=== PATIENT | female | born 1945 | race Caucasian/White ===

== ENCOUNTER → 2018-02-15 11:52 | Outpatient (CLI) | payer MEDICARE, OTHER, SELFPAY ==
--- NOTE | 2018-02-15 | DI.US.S_ITS ---
PROCEDURE: US ABDOMEN COMPLETE INDICATIONS: SEVERE ABDOMINAL PAIN TECHNIQUE: Real-time scanning was performed of the abdominal and retroperitoneal organs, with image documentation. COMPARISON: [facility], US, ABDOMEN COMPLETE, 10/03/2014, 9:32. FINDINGS: Liver: The liver demonstrates normal size. The liver demonstrates generalized increased echogenicity. This decreases ultrasound sensitivity for detection of hepatic masses. Gallbladder: Removed. Biliary ducts: Intrahepatic bile ducts are non-dilated. Extrahepatic bile duct caliber measures 7 mm. Normal is 6-7 mm or less in diameter, or 10 mm or less post-cholecystectomy. Pancreas: Not seen, obscured by overlying bowel gas. Spleen: Spleen is normal in size and homogeneous in echotexture. Kidneys: Kidneys are normal in size and echotexture. Right kidney measures 11.4 cm long; left kidney measures 11.1 cm long. No hydronephrosis or nephrolithiasis. No solid masses. Aorta: Visualized aorta is normal in caliber at less than 3 cm. Iliacs: Proximal common iliac arteries are normal in caliber at less than 2.5 cm. IVC: Intrahepatic inferior vena cava is patent. Miscellaneous: No free abdominal fluid. IMPRESSION: Status post cholecystectomy, without biliary dilatation. The liver demonstrates increased echogenicity. This finding is nonspecific, yet it is most commonly attributed to fatty infiltration. Nonvisualization of the pancreas secondary to bowel gas. Dictated by: Sheng Andrews M.D. on 02/15/2018 at 14:24 Approved by: Sheng Andrews M.D. on 02/15/2018 at 14:26
--- NOTE | 2018-02-15 | DI.RAD.S_ITS ---
PROCEDURE: XR ABDOMEN 1V INDICATIONS: ABDOMINAL PAIN TECHNIQUE: One view of the abdomen acquired. COMPARISON: [facility], CT, ABDOMEN WITH CONTRAST, 09/18/2008, 12:09. FINDINGS: Surgical changes and devices: None. Bowel: Bowel gas pattern is normal. A moderate amount of stool seen within the colon. Soft tissues: No suspicious abdominal calcifications. Visualized solid organ contours appear normal in size. Bones: No suspicious bony lesions. Age-appropriate bony degenerative changes are seen. IMPRESSION: There is a moderate amount of stool seen within the colon. Please correlate with an underlying history of constipation. Dictated by: Sheng Andrews M.D. on 02/15/2018 at 11:18 Approved by: Sheng Andrews M.D. on 02/15/2018 at 11:19
== END ==
PROVIDERS: Family Provider Family Medicine; PCP Family Medicine; Visit Provider Family Medicine
DX: R10.9 Unspecified abdominal pain (principal); Z90.49 Acquired absence of other specified parts of digestive tract
CPT/HCPCS: 74018; 76700

== ENCOUNTER → 2018-08-16 13:30 | Outpatient (CLI) | payer MEDICARE, OTHER, SELFPAY ==
--- NOTE | 2018-08-16 13:31 | DI.MG.S_ITS ---
UNILATERAL RIGHT DIGITAL DIAGNOSTIC MAMMOGRAM 3D/2D POST MASTECTOMY: 08/16/2018 CLINICAL: Right breast lump. Personal history of left breast cancer. Post left mastectomy. Comparison is made to exams dated: 06/17/2010 mammogram, 07/10/2009, and 07/01/2009 [facility]. The tissue of right breast is predominantly fatty. There are grouped dystrophic rim calcifications in the right breast at 12 o'clock middle depth. These correspond with the palpable abnormality. There are also diffuse benign round calcifications and post operative changes in the right breast. No other significant masses or calcifications are seen in the breast. IMPRESSION: The rim calcifications in the right breast are benign. There is no mammographic evidence of malignancy. A 1 year screening mammogram is recommended. This exam was interpreted at Station ID: [id number]. NOTE: For mammograms, a report in lay terms will be sent to the patient. Approximately 15% of breast malignancies will not be visualized mammographically. In the management of a palpable breast mass, a negative mammogram must not discourage biopsy of a clinically suspicious lesion. Electronically Signed By: Diana So M.D. lk/:08/16/2018 14:14:39 copy to: Rodney Moon letter sent: Normal Exam ACR BI-RADS Category 2: Benign Finding(s) 3342F
== END ==
PROVIDERS: Family Provider Family Medicine; PCP Family Medicine; Visit Provider Surgery
DX: R92.1 Mammographic calcification found on diagnostic imaging of breast (principal); Z85.3 Personal history of malignant neoplasm of breast
CPT/HCPCS: 77065; G0279

== ENCOUNTER → 2019-02-27 09:38 | Outpatient (CLI) | payer MEDICARE, OTHER, SELFPAY ==
--- NOTE | 2019-02-27 | DI.US.S_ITS ---
PROCEDURE: US ARTERIAL DUPLEX LE RT INDICATIONS: PERIPHERAL VASCULAR DISEASE UNSPECIFIED TECHNIQUE: Color and pulse Doppler interrogation was performed of the right lower extremity arterial system, with image documentation. COMPARISON: [facility], , ARTERIAL LOW.EXTREMITY UNILAT., 08/02/2017, 10:34. FINDINGS: Common femoral artery: 140 cm/sec, with triphasic flow. Deep femoral artery: 74 cm/sec, with biphasic flow. Proximal superficial femoral artery: 151 cm/sec, with triphasic flow. Mid superficial femoral artery: 98 cm/sec, with triphasic flow. Distal superficial femoral artery: 78 cm/sec, with triphasic flow. Popliteal artery: 69, 59 cm/sec, with triphasic flow. Posterior tibial artery: 48, 90, 82 cm/sec, with biphasic flow. Anterior tibial artery/dorsalis pedis: 47, 74, 87 cm/sec, with biphasic flow. Hull-scale imaging description: Widely patent arterial vessels IMPRESSION: Widely patent vasculature from the right common femoral to the ankle, with at least 2 vessel runoff. Dictated by: Tucker Kirk M.D. on 02/27/2019 at 13:33 Approved by: Tucker Kirk M.D. on 02/27/2019 at 13:40
== END ==
PROVIDERS: PCP Family Medicine; Visit Provider Family Medicine
DX: I73.9 Peripheral vascular disease, unspecified (principal)
CPT/HCPCS: 93926

== ENCOUNTER → 2019-08-22 09:57 | Outpatient (CLI) | payer MEDICARE, OTHER, SELFPAY ==
--- NOTE | 2019-08-22 | DI.MG.S_ITS ---
UNILATERAL RIGHT DIGITAL SCREENING MAMMOGRAM 3D/2D WITH CAD POST MASTECTOMY: 08/22/2019 CLINICAL: Routine screening. Personal history of left breast cancer. Post left mastectomy. Comparison is made to exams dated: 08/16/2018 mammogram, 06/17/2010 mammogram, and 07/10/2009 [facility]. There are scattered fibroglandular elements in right breast. Current study was also evaluated with a Computer Aided Detection (CAD) system. There is a benign area of fat necrosis in the right breast. There also are benign calcifications in the right breast. No significant masses, calcifications, or other findings are seen in the breast. There has been no significant interval change. IMPRESSION: There is no mammographic evidence of malignancy. A 1 year screening mammogram is recommended. This exam was interpreted at Station ID: [id number]. NOTE: For mammograms, a report in lay terms will be sent to the patient. Approximately 15% of breast malignancies will not be visualized mammographically. In the management of a palpable breast mass, a negative mammogram must not discourage biopsy of a clinically suspicious lesion. Electronically Signed By: Narendra cisneros/kirsten:08/22/2019 10:23:56 copy to: Rodney Moon letter sent: Normal Exam ACR BI-RADS Category 2: Benign Finding(s) 3342F
== END ==
PROVIDERS: PCP Family Medicine; Referring Provider Family Medicine; Visit Provider Family Medicine
DX: Z12.31 Encounter for screening mammogram for malignant neoplasm of breast (principal); Z85.3 Personal history of malignant neoplasm of breast; Z90.12 Acquired absence of left breast and nipple
CPT/HCPCS: 77063; 77067

== ENCOUNTER → 2020-05-05 14:57 | Outpatient (CLI) | payer MEDICARE, OTHER, SELFPAY ==
--- NOTE | 2020-05-05 | DI.MG.S_ITS ---
UNILATERAL RIGHT DIGITAL DIAGNOSTIC MAMMOGRAM 3D/2D POST MASTECTOMY: 05/05/2020 CLINICAL: Breast lump. Comparison is made to exams dated: 08/22/2019 mammogram, 08/16/2018 mammogram, and 06/17/2010 mammogram - [facility]. The tissue of right breast is predominantly fatty. There are benign diffuse coarse calcifications in the right breast. There are grouped dystrophic rim calcifications in the right breast at 12 o'clock middle depth. These are increased in number and correlates as palpated. No other significant masses or calcifications are seen in the breast. IMPRESSION: BENIGN The grouped dystrophic rim calcifications in the right breast are consistent with fat necrosis and are benign. There is no mammographic evidence of malignancy. A 1 year screening mammogram is recommended. This exam was interpreted at Station ID: [id number]. NOTE: For mammograms, a report in lay terms will be sent to the patient. Approximately 15% of breast malignancies will not be visualized mammographically. In the management of a palpable breast mass, a negative mammogram must not discourage biopsy of a clinically suspicious lesion. Electronically Signed By: Angel Luis tipton/kirsten:05/05/2020 15:46:00 copy to: Rodney Moon letter sent: Clinical Evaluation ACR BI-RADS Category 2: Benign Finding(s) 3342F
== END ==
PROVIDERS: PCP Family Medicine; Referring Provider Family Medicine; Visit Provider Family Medicine
DX: R92.1 Mammographic calcification found on diagnostic imaging of breast (principal); N63.10 Unspecified lump in the right breast, unspecified quadrant; Z90.10 Acquired absence of unspecified breast and nipple
CPT/HCPCS: 76642; 77065; G0279

== ENCOUNTER → 2020-11-12 09:01 | Outpatient (CLI) | payer MEDICARE, OTHER, SELFPAY ==
--- NOTE | 2020-11-12 | DI.RAD.S_ITS ---
PROCEDURE: XR KNEE LT 3V INDICATIONS: Pain in left knee TECHNIQUE: 3 views of the knee were acquired. COMPARISON: [facility], , KNEE 3V LEFT, 09/04/2014, 10:25. FINDINGS: Bones: Tricompartmental degenerative changes with tricompartmental osteophytes and medial joint space narrowing. There is chondrocalcinosis in the lateral joint space. No fracture or dislocation. Soft tissues: Moderate suprapatellar joint effusion. No suspicious soft tissue calcifications. IMPRESSION: 1. Tricompartmental degenerative changes consistent with osteoarthritis. 2. Chondrocalcinosis. Dictated by: Derian Hollins M.D. on 11/12/2020 at 9:39 Approved by: Derian Hollins M.D. on 11/12/2020 at 9:40
== END ==
PROVIDERS: PCP Family Medicine; Referring Provider Family Medicine; Visit Provider Family Medicine
DX: M25.562 Pain in left knee (principal); M17.12 Unilateral primary osteoarthritis, left knee; M11.262 Other chondrocalcinosis, left knee
CPT/HCPCS: 73562

== ENCOUNTER → 2021-05-09 10:21 | Outpatient (CLI) | payer MEDICARE, OTHER, SELFPAY ==
--- NOTE | 2021-05-09 | DI.MG.S_ITS ---
UNILATERAL RIGHT DIGITAL SCREENING MAMMOGRAM 3D/2D WITH CAD: 05/09/2021 CLINICAL: Routine screening. Personal history of left breast cancer. Comparison is made to exams dated: 05/05/2020 mammogram, 08/22/2019 mammogram, and 08/16/2018 mammogram - [facility]. There are scattered fibroglandular elements in right breast. Current study was also evaluated with a Computer Aided Detection (CAD) system. There is a stable benign calcification in the right breast. There also are benign post operative findings in the right breast. No significant masses, calcifications, or other findings are seen in the breast. There has been no significant interval change. IMPRESSION: BENIGN There is no mammographic evidence of malignancy. A 1 year screening mammogram is recommended. This exam was interpreted at Station ID: [id number]. NOTE: For mammograms, a report in lay terms will be sent to the patient. Approximately 15% of breast malignancies will not be visualized mammographically. In the management of a palpable breast mass, a negative mammogram must not discourage biopsy of a clinically suspicious lesion. Electronically Signed By: Nelly martinez/kirsten:05/11/2021 09:56:51 copy to: Rodney Moon letter sent: Normal Exam ACR BI-RADS Category 2: Benign Finding(s) 3342F
== END ==
PROVIDERS: PCP Family Medicine; Referring Provider Family Medicine; Visit Provider Family Medicine
DX: Z12.31 Encounter for screening mammogram for malignant neoplasm of breast (principal); Z85.3 Personal history of malignant neoplasm of breast
CPT/HCPCS: 77063; 77067

== ENCOUNTER 2021-07-03 10:49 | Emergency (ER) | payer MEDICARE, OTHER, SELFPAY ==
[2021-07-03 11:01] VITALS: BP 120/78; PULSE 78; RESP 14; TEMP 36.7; O2SAT 99
--- NOTE | 2021-07-03 11:04 | DI.RAD.S_ITS ---
PROCEDURE: XR MANDIBLE MIN 4V INDICATIONS: fall, chin/jaw pain TECHNIQUE: 4 views of the mandible were acquired. COMPARISON: None. FINDINGS: Bones: No acute displaced fractures or dislocations. No suspicious bony lesions. Soft tissues: Visualized sinuses appear clear. No suspicious soft tissue densities. IMPRESSION: No acute displaced mandibular fracture identified. If clinical suspicion and/or symptoms persist, additional imaging with repeat plain films, or advanced imaging (e.g. CT, MRI) may be helpful for further assessment. Dictated by: Angel Luis Hdz M.D. on 07/03/2021 at 12:00 Approved by: Angel Luis Hdz M.D. on 07/03/2021 at 12:02
--- NOTE | 2021-07-03 11:04 | ED.FALL ---
HPI - Fall General Chief Complaint: Fall Stated Complaint: fell off curb/injury under chin Time Seen by Provider: 07/03/21 10:56 Source: patient Mode of arrival: Ambulatory History of Present Illness HPI Narrative: 76-year-old female nonsmoker without blood thinners presents for evaluation of injuries sustained from a ground level fall just prior to her arrival. She states she was walking and misjudged the height of a curb and tripped and fell forward, striking her chin on the ground. She denies other head injury and has no loss of consciousness, nausea or vomiting. She denies any prodromal symptoms such as dizziness, weakness, lightheadedness or chest pain. She denies any malocclusion or loose teeth. She is otherwise well and free of complaint Related Data Home Medications Medication Instructions Recorded Confirmed FLAXSEED OIL (FLAX OIL) 2,000 mg PO Q DAY #0 03/02/12 08/07/18 ASPIRIN (#ASPIRIN) 81 mg PO EVERY OTHER DAY #0 02/13/13 08/07/18 BIOTIN/BORON/CA/CHLORIDE/CR/ 1 tab PO Q DAY #0 02/13/13 08/07/18 (#CENTRUM SILVER) HYDROCHLOROTHIAZIDE (#HYDRODIURIL) 50 mg PO Q DAY #0 02/13/13 08/07/18 Multivitamin and [id number] (B 1 tab PO EVERY OTHER DAY #0 02/13/13 08/07/18 COMPLEX) VITAMIN D (Vitamin D3) 3,000 unit PO QDAY #0 02/13/13 08/07/18 lansoprazole 30 mg capsule,delayed 30 mg PO BID #0 02/13/13 08/07/18 release levothyroxine 88 mcg tablet 0.088 mg PO QDAY #0 02/13/13 08/07/18 (Synthroid) olmesartan 5 mg tablet (Benicar) 10 mg PO QHS #0 02/13/13 08/07/18 famciclovir 500 mg tablet 500 mg PO TID #0 05/02/13 sucralfate 1 gram tablet (Carafate) 1 gram PO QACHS 08/07/18 08/07/18 Allergies Allergy/AdvReac Type Severity Reaction Status Date / Time clonidine Allergy Mild Unverified 08/07/18 15:20 hydromorphone Allergy Mild NAUSEA Unverified 08/07/18 15:20 iodine Allergy Unknown Unverified 08/07/18 15:20 Review of Systems Review of Systems Narrative: GENERAL: Denies chills, fatigue, malaise, fever, sweats. HEENT: Denies sinus pain, ear pain, sore throat, difficulty swallowing, dizziness. RESPIRATORY: Denies dyspnea, cough, wheezing, hemoptysis, sputum. CARDIOVASCULAR: Denies chest pain, palpitations, orthopnea, edema, GASTROINTESTINAL: Denies nausea, vomiting, abdominal pain, diarrhea, constipation, melena. : Denies dysuria, frequency, incontinence, hematuria, urinary retention. MUSCULOSKELETAL: denies weakness, joint pain, or bony pain SKIN: See HP NEUROLOGIC: Denies weakness, headache, numbness, change in speech, confusion, seizures, incoordination. PSYCHIATRIC: No concerning psychosocial issues. 12 point review of systems is negative except for those stated above Patient History Medical History HTN (hypertension) Surgical History H/O bilateral mastectomy History of appendectomy History of tonsillectomy Social History marital status: household members: spouse occupational status: unemployed Smoking Status: Never smoker alcohol intake: never substance use type: does not use Smoking Status: Never smoker alcohol intake frequency: 0-2 drinks per day Substance Use Type: does not use Exam Narrative Exam Narrative: GENERAL: [76 year old patient appears stated age. Well-developed patient, in mild distress. GCS 15, holding a bandage on her chin HEAD: 1.5 cm cyst slightly gaping laceration on chin, no evidence of foreign body, otherwise no abnormal findings, no contusions, hematomas, other lacerations or evidence of depressed skull fracture EYES: Pupils equal round and reactive. No hyphema Extraocular motions intact. No scleral icterus. No injection or drainage. ENT: Nose without bleeding, purulent drainage. No nasal septal hematoma or evidence of bleeding Throat without erythema, tonsillar hypertrophy or exudate. Airway patent. NECK: Trachea midline. Non tender CARDIOVASCULAR: Regular rate and rhythm without murmurs, gallops, or rubs. RESPIRATORY: Clear to auscultation. Breath sounds equal bilaterally. No wheezes, rales, or rhonchi. GASTROINTESTINAL: Abdomen soft, non-tender, nondistended. EXTREMITIES: No edema or joint tenderness. BACK: Nontender without deformity or crepitance. No flank tenderness. NEURO: AOx3. SKIN: No rash or erythema of visible areas Initial Vital Signs Initial Vital Signs: Vital Signs Temperature 98.1 F 07/03/21 11:01 Pulse Rate 78 07/03/21 11:01 Respiratory Rate 14 07/03/21 11:01 Blood Pressure 120/78 07/03/21 11:01 Pulse Oximetry 99 07/03/21 11:01 Procedures Laceration Repair Laceration 1: Site: face Size (cm): 1.5 Description: linear Depth: simple, single layer Local Anesthetic: lidocaine 1% and with bicarb Amount of anesthesia used (mL): 3 Pre-repair: wound explored and irrigated extensively Skin layer closed with: nylon Size (cm): 6-0 Number of sutures: 3 Technique: simple, interrupted Course Orders Ordered: Discontinued Medications Diphtheria/Tetanus/Acell Pertussis (Tet,Diph,Pertuss(Acell),Vac/Pf 0.5 Ml Syringe) 0.5 ml IM .ONCE ONE Stop: 07/03/21 11:05 Last Admin: 07/03/21 11:14 Dose: 0.5 ml Documented by: KARRIE Lidocaine/Sodium Bicarbonate (Lido 1%/Sod Bicarb 8.4% (10ml) 10 Ml Syringe) 10 ml INJ NOW ONE Stop: 07/03/21 11:05 Last Admin: 07/03/21 11:15 Dose: 10 ml Documented by: KARRIE Vital Signs Vital signs: Vital Signs - 8 hr 07/03/21 11:01 Temperature 98.1 F Pulse Rate 78 Respiratory Rate 14 Blood Pressure 120/78 Pulse Oximetry 99 Discharge Plan Departure Patient Disposition: Home Clinical Impression: Laceration of chin Instructions: DI for Laceration Repair -- Simple Activity Restrictions/Additional Instructions: Please keep the wound clean and dry to the best of your ability. Please monitor for signs of infection such as redness to the skin or increasing pain. Have the sutures removed by your doctor in about 7 days. If you are unable to get into your doctor, we would be happy to remove the sutures in that same timeframe. Prescriptions: No Action FLAXSEED OIL (FLAX OIL) 2,000 mg PO Q DAY Qty: 0 0RF ASPIRIN (#ASPIRIN) 81 mg PO EVERY OTHER DAY Qty: 0 0RF levothyroxine [Synthroid] 88 MCG tablet 0.088 mg PO QDAY Qty: 0 0RF lansoprazole 30 MG capsule,delayed release(DR/EC) 30 mg PO BID Qty: 0 0RF olmesartan [Benicar] 5 MG tablet 10 mg PO QHS Qty: 0 0RF BIOTIN/BORON/CA/CHLORIDE/CR/ (#CENTRUM SILVER) 1 tab PO Q DAY Qty: 0 0RF HYDROCHLOROTHIAZIDE (#HYDRODIURIL) 50 mg PO Q DAY Qty: 0 0RF Multivitamin and Qqqqhaakvyw31 (B COMPLEX) 1 tab PO EVERY OTHER DAY Qty: 0 0RF VITAMIN D (Vitamin D3) 3,000 unit PO QDAY Qty: 0 0RF famciclovir 500 MG tablet 500 mg PO TID Qty: 0 0RF sucralfate [Carafate] 1 gram tablet 1 gram PO QACHS 0RF Referrals: Rodney Moon MD [Primary Care Provider] -
[2021-07-03] MEDS: TET,DIPH,PERTUSS(ACELL),VAC/PF 0.5 ML SYRINGE IM (11:14)
[2021-07-03] MEDS: LIDO 1%/SOD BICARB 8.4% (10ML) 10 ML SYRINGE INJ (11:15)
[2021-07-03 12:00] VITALS: BP 163/91; PULSE 57; RESP 18; O2SAT 96
== END 2021-07-03 12:21 | disposition home or self-care (01) ==
PROVIDERS: Emergency Provider Emergency Medicine; PCP Family Medicine
DX: S01.81XA Laceration without foreign body of other part of head, initial encounter (principal); W10.1XXA Fall (on)(from) sidewalk curb, initial encounter; Z23 Encounter for immunization
CPT/HCPCS: 12011; 70110; 90471; 99283; 99284; 90715

== ENCOUNTER 2021-07-15 11:20 | Emergency (ER) | payer MEDICARE, OTHER, SELFPAY ==
[2021-07-15 11:52] VITALS: BP 148/71; PULSE 50; RESP 14; TEMP 36.1; O2SAT 98; BMI 32.1
--- NOTE | 2021-07-15 15:16 | PC.NURSE ---
2 sutures removed from under chin. Per MD, no need for MD assessment. Pt sent home with return precautions
== END 2021-07-15 15:18 | disposition home or self-care (01) ==
PROVIDERS: Emergency Provider Emergency Medicine; PCP Family Medicine
DX: Z48.02 Encounter for removal of sutures (principal)
CPT/HCPCS: 99281

== ENCOUNTER → 2021-12-08 10:14 | Outpatient (CLI) | payer MEDICARE, OTHER, SELFPAY ==
--- NOTE | 2021-12-08 | DI.RAD.S_ITS ---
PROCEDURE: XR CHEST 2V INDICATIONS: Atherosclerotic heart disease of [place] coronary artery with TECHNIQUE: 2 views of the chest were acquired. COMPARISON: [facility], , CHEST 2 VIEW, 12/19/2009, 10:35. FINDINGS: Surgical changes and devices: Surgical clips are seen in left axilla. Lungs and pleura: Lungs are clear. No pleural effusions or pneumothorax. Mediastinum: Mediastinal contours are normal. Heart size is enlarged. Bones and chest wall: No suspicious bony abnormalities. Soft tissues appear unremarkable. IMPRESSION: No acute cardiopulmonary pathology. Dictated by: Boom Espinal M.D. on 12/08/2021 at 11:51 Approved by: Boom Espinal M.D. on 12/08/2021 at 11:52
== END ==
PROVIDERS: PCP Family Medicine; Referring Provider Family Medicine; Visit Provider Family Medicine
DX: I25.10 Atherosclerotic heart disease of native coronary artery without angina pectoris (principal)
CPT/HCPCS: 71046

== ENCOUNTER → 2022-01-25 12:25 | Outpatient (CLI) | payer MEDICARE, OTHER, SELFPAY ==
--- NOTE | 2022-01-25 12:28 | DI.RAD.S_ITS ---
PROCEDURE: XR KNEE LT 3V INDICATIONS: BILATERAL KNEE PAIN TECHNIQUE: 3 views of the knee were acquired. COMPARISON: [facility], CR, XR KNEE LT 3V, 11/12/2020, 9:05. FINDINGS: Bones: No fractures or dislocations. No suspicious bony lesions. Moderate tricompartmental periarticular osteophyte formation. Soft tissues: No joint effusion. Calcification within the lateral compartment of the knee is present. IMPRESSION: 1. Osteoarthritis. 2. Chondrocalcinosis. Differential diagnosis includes but is not limited to hemochromatosis, hyperparathyroidism and CPPD. 3. No acute fracture. No osseous lesion. If symptoms and/or clinical suspicion for pathology persist, further assessment with repeat, or advanced imaging (e.g., CT, MRI, or bone scan) may be helpful for further assessment. Dictated by: Lynnette Pacheco M.D. on 01/25/2022 at 15:19 Approved by: Lynnette Pacheco M.D. on 01/25/2022 at 15:20
--- NOTE | 2022-01-25 12:28 | DI.RAD.S_ITS ---
PROCEDURE: XR KNEE RT 3V INDICATIONS: BILATERAL KNEE PAIN TECHNIQUE: 3 views of the knee were acquired. COMPARISON: [facility], CR, XR KNEE LT 3V, 11/12/2020, 9:05. FINDINGS: Bones: No fractures or dislocations. No suspicious bony lesions. Mild tricompartmental periarticular osteophyte formation. Soft tissues: No joint effusion. No suspicious soft tissue calcifications. IMPRESSION: Osteoarthritis. No acute fracture. No osseous lesion. If symptoms and/or clinical suspicion for pathology persist, further assessment with repeat, or advanced imaging (e.g., CT, MRI, or bone scan) may be helpful for further assessment. Dictated by: Lynnette Pacheco M.D. on 01/25/2022 at 15:21 Transcribed by: HARPAL on 01/25/2022 at 15:21 Approved by: Lynnette Pacheco M.D. on 01/25/2022 at 16:58
== END ==
PROVIDERS: PCP Family Medicine; Referring Provider Family Medicine; Visit Provider Family Medicine
DX: M25.561 Pain in right knee (principal); M25.562 Pain in left knee; M17.0 Bilateral primary osteoarthritis of knee; M11.262 Other chondrocalcinosis, left knee
CPT/HCPCS: 73562

== ENCOUNTER → 2022-04-12 10:59 | Outpatient (CLI) | payer MEDICARE, OTHER, SELFPAY ==
[2022-04-12 12:53] LABS: COVID19 -Nasal RAPID Negative (Negative)
--- NOTE | 2022-04-13 19:40 | DI.NM.S_ITS ---
DATE OF SERVICE: 04/12/2022 PROCEDURE PERFORMED: Pharmacological perfusion study. INDICATION: Chest pain with known history of mid LAD coronary stent in Nov, 2019 as well as in April, with underlying hypertension and hyperlipidemia. RADIOPHARMACEUTICAL: 25.5 millicurie technetium-99m Myoview IV was injected at stress and 25.6 millicurie technetium-99m Myoview IV was injected at rest. CARDIAC STRESS: The patient underwent IV Lexiscan perfusion study, as per standard protocol. It was done under the supervision of an attending staff. During Lexiscan, patient had minimal dyspnea. No chest discomfort. Baseline rhythm was sinus. Some baseline PACs. During stress, the patient continued to have PACs, as well as some premature ventricular contractions and occasional ventricular couplets. No ventricular tachycardia. No obvious ischemic EKG changes. No reversal agent needed. RAW DATA: There is increased subdiaphragmatic activity. Breast shadow was seen, as well. Gated study LV function hyperdynamic with LV ejection fraction reported to be 92 percent. No obvious wall motion abnormalities. Resting end- diastolic volume 72 mL. TID ratio 1.0, which is within normal limits. Lung/heart ratio 0.29, which is within normal limits. MYOCARDIAL PERFUSION SCAN: Stress supine, resting supine and stress prone images were compared to each that each other. It appears to be that patient has normal myocardial perfusion. The summed stress score is zero. CONCLUSION: This is a normal myocardial perfusion study without any obvious ischemia or infarction pattern. Summed stress score is zero. Hyperdynamic left ventricle. Overall, low-risk myocardial perfusion scan. Vera Galvez - Savita/rancho doc#: [id number]/job#: [id number] dd: 04/13/2022 17:05:00 dt: 04/13/2022 19:12:00 DICTATING MD/COPIES TO: Mariely Kohli MD COPIES MNE: JOSUE;
== END ==
PROVIDERS: PCP Family Medicine; Referring Provider Internal Medicine Cardiovascular Disease; Visit Provider Internal Medicine Cardiovascular Disease
DX: I25.118 Atherosclerotic heart disease of native coronary artery with other forms of angina pectoris (principal); I10 Essential (primary) hypertension; E78.5 Hyperlipidemia, unspecified; Z95.5 Presence of coronary angioplasty implant and graft; Z20.822 Contact with and (suspected) exposure to COVID-19
CPT/HCPCS: 78452; 87635; 93017; A9502; J2785

== ENCOUNTER → 2022-05-10 12:40 | Outpatient (CLI) | payer MEDICARE, OTHER, SELFPAY ==
--- NOTE | 2022-05-10 | DI.MG.S_ITS ---
UNILATERAL RIGHT DIGITAL SCREENING MAMMOGRAM 3D/2D WITH CAD POST MASTECTOMY: 05/10/2022 CLINICAL: Routine screening. Personal history of left breast cancer. Comparison is made to exams dated: 05/09/2021 mammogram, 05/05/2020 mammogram, and 08/22/2019 mammogram - [facility]. There are scattered areas of fibroglandular density in the right breast (category b / 25%-50% glandular tissue). Current study was also evaluated with a Computer Aided Detection (CAD) system. There are stable benign calcifications in the right breast. There also are benign post operative findings in the right breast. No significant masses, calcifications, or other findings are seen in the breast. There has been no significant interval change. IMPRESSION: BENIGN There is no mammographic evidence of malignancy. A 1 year screening mammogram is recommended. This exam was interpreted at Station ID: [id number]. NOTE: For mammograms, a report in lay terms will be sent to the patient. Approximately 15% of breast malignancies will not be visualized mammographically. In the management of a palpable breast mass, a negative mammogram must not discourage biopsy of a clinically suspicious lesion. Electronically Signed By: Panfilo haines/kirsten:05/10/2022 13:30:43 copy to: Rodney Moon letter sent: Normal Exam ACR BI-RADS Category 2: Benign Finding(s) 3342F
== END ==
PROVIDERS: PCP Family Medicine; Referring Provider Family Medicine; Visit Provider Family Medicine
DX: Z12.31 Encounter for screening mammogram for malignant neoplasm of breast (principal); Z85.3 Personal history of malignant neoplasm of breast
CPT/HCPCS: 77063; 77067

== ENCOUNTER → 2022-07-10 10:35 | Outpatient (CLI) | payer MEDICARE, OTHER, SELFPAY ==
[2022-07-10 12:46] LABS: COVID19 -Nasal RAPID Negative (Negative)
== END ==
PROVIDERS: PCP Family Medicine; Referring Provider Orthopaedic Surgery; Visit Provider Orthopaedic Surgery
DX: Z20.822 Contact with and (suspected) exposure to COVID-19 (principal)
CPT/HCPCS: 87635; C9803

== ENCOUNTER 2022-07-14 16:15 | Observation (INO) | payer MEDICARE, OTHER, SELFPAY ==
[2022-07-07 12:23] VITALS: BMI 32.3
[2022-07-13] VITALS (13 sets, daily range): BP systolic 107–175; BP diastolic 56–105; PULSE 66–87; RESP 10–19; TEMP 35.6–36.5; O2SAT 91–100; BMI 32.9
--- NOTE | 2022-07-13 10:36 | DI.RAD.S_ITS ---
PROCEDURE: XR KNEE RT 1TO2V INDICATIONS: total knee arthroplasty TECHNIQUE: 2 view(s) of the knee acquired. COMPARISON: [facility], , XR KNEE RT 3V, 01/25/2022, 12:29. FINDINGS: Bones: Patient is status post knee joint arthroplasty. Hardware components are in expected positions. Visualized bony structures are intact. Soft tissues: Overlying postoperative changes are noted. IMPRESSION: Postop changes from right total knee arthroplasty with anatomic right knee alignment. Dictated by: Boom Espinal M.D. on 07/14/2022 at 8:48 Approved by: Boom Espinal M.D. on 07/14/2022 at 8:49
[2022-07-13] MEDS: ACETAMINOPHEN 325 MG TABLET 975 MG PO (12:32)
[2022-07-13] MEDS: CELECOXIB 200 MG CAPSULE PO (12:32)
[2022-07-13] MEDS: LACTATED RINGERS 1,000 ML 42 ML IV (12:38)
[2022-07-13] MEDS: VANCOMYCIN 1,000 MG/200 ML PIGGYBACK 200 MG IV (14:06)
--- NOTE | 2022-07-13 14:27 | PM.PREOP ---
Pre-operative Note COVID-19 COVID-19 status: Negative Interval Note History & Physical reviewed/Exam performed by Physician: Yes Changes to H&P: No
--- NOTE | 2022-07-13 14:28 | P.OP_ITS ---
Operative Date/Time/Diagnoses Date of procedure: 07/13/22 Time of procedure: 15:00 Pre-op diagnosis: right knee OA Post-op diagnosis: same Procedure & Clinicians Procedure: Right total knee arthroplasty Same procedure as scheduled: Yes Indications: The patient has had progressively worsening right knee pain with radiographic changes consistent with arthritis. Non-operative management has failed and the patient has requested total knee replacement. The risks, benefits and alternatives to surgery were discussed with the patient prior to proceeding. Risks discussed included, but were not limited to, failure to relieve pain, stiffness, infection, nerve damage, deep venous thrombosis, pulmonary embolism, stroke, coma, heart attack, permanent paralysis and , as well as the potential need for eventual revision of the prosthetic. Surgeon: Deedee Triplett [place] Teacher: Tere Lee Anesthesia Type: General and Spinal Operative Notes Findings: Severe right knee osteoarthritis, adequate stability Closure Type: primary Specimen(s): none sent Prosthetic devices, grafts, tissues, transplants, or devices: Triplett and Nephew Karlene BCS 2 size femur 3, tibia 2, +10mm poly, 29 by 7.5mm patella Estimated Blood Loss (mL): 250 Blood products transfused: none Tourniquet time (min): 67 Procedure in detail: The patient was seen in the pre-operative area, where the patient identified the right knee as the operative site and this was marked with my initials. The patient received pre-operative antibiotics, and was taken to the operating room and placed on the operative table in the supine position. After satisfactory anesthesia, a methods time analyst out was performed. The right leg was encircled with a tourniquet about the proximal thigh, and the leg was prepared from the toes to the tourniquet with ChloroPrep in the usual fashion and draped through sterile drapes. The leg was elevated and exsanguinated with Eschmark bandage and the tourniquet inflated to [250] mmHg pressure. The knee was approached through an approximately 18 cm incision centered over the patella and carried into the knee through a medial parapatellar arthrotomy. A portion of the medial and lateral meniscus was resected. Soft tissue was carefully mobilized around the patella the patella was measured with a caliper. Bone was resected from the patella and the patellar height was reconstituted with up an appropriate sized patellar component. A cover was then placed on the patella. A small amount of additional medial and lateral meniscus was resected. The distal femur was cut at 5?. A [+2] cut was used. It looked like an appropriate distal femoral cut and the cut was made without difficulty. An extramedullary guide was used for the tibial cut. 10 mm was resected off the least affected side.The tibia was prepared. The rotation was assessed. The patient was placed in extension residual medial and lateral meniscus as well as any residual bone was carefully resected. [No] additional tibia was resected. Hemostasis was achieved especially posteriorly. Additional local was injected into the posterior capsule. The extension gap was assessed and additional releases for gap balancing were performed as necessary. It was checked with the gap job superintendent. The femoral component was trial was placed and the notch was finished. The rotation was assessed and the appropriate size femoral guide was placed on the distal femur and finishing cuts were made. There was no evidence of notching. The anterior, posterior and chamfer cuts were then made. The posterior osteophytes and soft tissues were then removed. The posterior capsule was injected with part of a mixture of 60 ml 0.25% Marcaine mixed with 20 ml Exparel for post operative pain control. The remainder of this mixture was injected into the capsule and subcutaneous tissues during cement curing. The tibial and femoral components were then placed and the knee placed through a range of motion. Range of motion was [0-130], with good stability throughout the range. The trials were then removed, and the tibia was finished. The bone was prepared with pulsatile lavage, and dried with a sponge. Cement was applied and the final prosthetics placed. Excess cement was removed during and after cement curing. A brief Betadine soak was performed. After confirming there was no extruded cement posteriorly, the final tibial insert was placed. The knee was copiously irrigated and the tourniquet deflated. Hemostasis was obtained with the Bovie cautery. A drain was placed and brought out superolaterally. The capsule was closed with interrupted nonabsorbable suture. The subcutaneous layer was closed with barbed sutures, and the skin with a running 3-0 V-Lock suture and Surgical glue. An Aquacel Ag dressing was applied and the patient was taken to recovery having tolerated the procedure well. Complications: none Post-operative Condition: stable Disposition: Acute Care Plan for aftercare: The patient will be maintained on a standard total knee replacement protocol with weight bearing as tolerated. The patient will receive aspirin and sequential compression devices for DVT prophylaxis. The patient will be discharged home when safe for the home environment.
[2022-07-13] MEDS: TRANEXAMIC ACID 1,000 MG VIAL 2000 MG INJ ×2 (15:45→17:07)
[2022-07-13] MEDS: CEFAZOLIN 2 GM/100 ML PREMIX 100 ML IV ×2 (15:45→23:20)
[2022-07-13] MEDS: BUPIVACAINE LIPOSOME 266 MG/20 ML VIAL INJ (16:17)
[2022-07-13] MEDS: BUPIVACAINE 0.5% W/ EPI (PF) 30 ML VIAL INJ (16:18)
--- NOTE | 2022-07-13 16:21 | SUR.OPER ---
Supine on padded OR bed. Pillow under head, arms secured on padded armboards <90 degree abduction. Safety belt across torso. Non-operative leg secured with tape over blanket over lower leg. Operative leg secured in DeMayo positioner. Foam padded brace at thigh of operative leg.
[2022-07-13] MEDS: ONDANSETRON 4 MG/2 ML INJ IV (18:21)
[2022-07-13] MEDS: ACETAMINOPHEN 325 MG TABLET 650 MG PO ×2 (18:58→23:19)
[2022-07-13] MEDS: OXYCODONE IR 10 MG TABLET PO (18:59)
[2022-07-13] MEDS: LACTATED RINGERS 1,000 ML 100 ML IV (18:59)
--- NOTE | 2022-07-13 19:40 | PC.NURSE ---
Pt arrived from PACU at 1830. VSS, on 2LNC. She is settled into room, provided pain medications for c/o 7/10 pain to R knee. +CMS to foot, Antonio wrap C/D/I. IVF LR at 100 ml/hr running. Admission assessment endorsed to oncoming shift.
[2022-07-13] MEDS: ASPIRIN EC 81 MG TABLET PO (21:08)
[2022-07-13] MEDS: AMLODIPINE 5 MG TABLET 2.5 MG PO (21:08)
[2022-07-13] MEDS: DOCUSATE 100 MG CAPSULE PO (21:08)
[2022-07-13] MEDS: METOPROLOL IR 25 MG TABLET PO (21:08)
[2022-07-13] MEDS: ATORVASTATIN 20 MG TABLET 40 MG PO (21:10)
[2022-07-13] MEDS: hydroCHLOROthiazide 25 MG TABLET 50 MG PO (21:10)
[2022-07-13] MEDS: OXYCODONE IR 5 MG TABLET PO (23:22)
--- NOTE | 2022-07-14 01:34 | PC.NURSE ---
Pt has not urinated since surgery, bladder scanner showed max 145ml at 0030. Will recheck and try to get pt to void followed by bladder scanner.
[2022-07-14 03:06] VITALS: BP 138/71; PULSE 66; RESP 17; TEMP 36.3; O2SAT 99
[2022-07-14] MEDS: ONDANSETRON 4 MG/2 ML INJ IV ×3 (04:34→12:27)
[2022-07-14] MEDS: OXYCODONE IR 5 MG TABLET PO ×3 (05:33→12:28)
[2022-07-14] MEDS: LEVOTHYROXINE 75 MCG TABLET PO (05:33)
[2022-07-14] MEDS: ACETAMINOPHEN 325 MG TABLET 650 MG PO ×3 (05:34→16:55)
[2022-07-14] MEDS: PANTOPRAZOLE DR 40 MG TABLET PO (05:34)
[2022-07-14] MEDS: LACTATED RINGERS 1,000 ML 100 ML IV ×2 (05:35→22:13)
--- NOTE | 2022-07-14 06:55 | PM.DS.1 ---
History of Present Illness History of Present Illness Date Patient Seen: 07/14/22 Time Patient Seen: 06:55 Chief complaint: Right TKA *OPB* Narrative: Operative Date/Time/Diagnoses Date of procedure: 07/13/22 Time of procedure: 15:00 Pre-op diagnosis: right knee OA Post-op diagnosis: same Procedure & Clinicians Procedure: Right total knee arthroplasty Same procedure as scheduled: Yes Indications: The patient has had progressively worsening right knee pain with radiographic changes consistent with arthritis. Non-operative management has failed and the patient has requested total knee replacement. The risks, benefits and alternatives to surgery were discussed with the patient prior to proceeding. Risks discussed included, but were not limited to, failure to relieve pain, stiffness, infection, nerve damage, deep venous thrombosis, pulmonary embolism, stroke, coma, heart attack, permanent paralysis and , as well as the potential need for eventual revision of the prosthetic. Surgeon: Deedee Triplett Utility Person: Tere Lee Anesthesia Type: General and Spinal Operative Notes Findings: Severe right knee osteoarthritis, adequate stability Closure Type: primary Specimen(s): none sent Prosthetic devices, grafts, tissues, transplants, or devices: Triplett and Nephew Nadianey BCS 2 size femur 3, tibia 2, +10mm poly, 29 by 7.5mm patella Estimated Blood Loss (mL): 250 Blood products transfused: none Tourniquet time (min): 67 Discharge Providers Provider Discharge Date: 07/14/22 Primary care physician: Rodney Moon MD Consults: 07/13/22 10:36 Consult to Anesthesiology Routine Comment: Consulting Provider: Anesthesiologist Reason for consultation: Regional block for post operative pain control 07/13/22 18:51 Consult to Discharge Planning Routine Comment: Consult to Physical Therapy Evaluate & Treat Comment: Physician Instructions: postop TKA protocol Discharge provider: Teresa Rivas PA-C Summary Hospital Course Discharge Diagnosis: Right knee osteoarthritis, s/p total knee arthroplasty Hospital Course: Ms Galvez's hospital course was remarkable for post-op urinary retention that required in/out cathterization. On the morning of POD# 1, she was feeling sore and tired, reporting that she had been up all night with urinary retention and nausea. At the time of my visit, she was feeling better. She had not been OOB w/ PT yet. She was hesitant about going home as her will be the only one helping her; she had been counting on her daughter's help as well, but she now has covid. She has set up her house for ease of use when she does return. She has all of her post-op medications at home. Exam Vital Signs (past 8 hours): - 07/14/22 03:06 Temperature 97.3 F L Pulse Rate 66 Respiratory Rate 17 Blood Pressure 138/71 Pulse Oximetry 99 Oxygen Flow Rate 2 Oxygen Delivery Method Nasal Cannula Oxygen Flow Rate 2 Narrative Exam Narrative: 5/5 strength in hip flexors, quadriceps, hamstrings, DF, PF, EHL; sensation to light touch intact throughout RLE. Calf soft, compressible, nontender and without palpable cords or masses. Aquacel dressing is CDI. [facility] Medical History (Updated 07/06/22 @ 13:30 by Jess Camacho RN) Anesthesia complication Anxiety Arthritis Breast cancer (~2006) CAD (coronary artery disease) Depression Eczema GERD (gastroesophageal reflux disease) HLD (hyperlipidemia) HTN (hypertension) Hypothyroidism Pre-diabetes Surgical History (Updated 07/06/22 @ 13:47 by Jess Camacho RN) H/O bilateral mastectomy History of appendectomy History of hysterectomy History of Billie fundoplication History of partial mastectomy of right breast (~2009) History of tonsillectomy History of tonsillectomy and adenoidectomy Hx of bilateral cataract extraction Hx of cholecystectomy Hx of heart artery stent (11/2019) Hx of left mastectomy (2007) S/P PTCA (percutaneous transluminal coronary angioplasty) Social History marital status: household members: spouse occupational status: unemployed Smoking Status: Never smoker alcohol intake: never substance use type: does not use Discharge Assessment & Plan Assessment and Plan Assessment: Right knee osteoarthritis, s/p total knee arthroplasty Plan of Treatment: Pt may discharge today if she is able to void independently; is safe for homegoing per PT; and her pain and nausea is well-controlled. She has all of her medications for discharge. Discharge Plan Discharge Plan Patient Disposition: Home Discharge orders & Medications Discharge Orders: Discharge (Order); Ordered 07/14/22 Ordered By: Teresa Rivas Prescriptions: New aspirin 81 mg Tablet,Delayed Release (Dr/Ec) 81 mg PO BID Qty: 1 0RF Rx Instructions: Take one tablet twice a day for 6 weeks after surgery Continued multivitamin Tablet 1 tab PO DAILY Qty: 0 hydrochlorothiazide 50 mg Tablet 50 mg PO BEDTIME Qty: 0 lansoprazole 30 MG capsule,delayed release(DR/EC) 30 mg PO BID Qty: 0 amlodipine 5 mg Tablet 2.5 mg PO BID levothyroxine 75 mcg Tablet 75 mcg PO DAILY nitroglycerin 0.4 mg Tablet, Sublingual 0.4 mg SUBLINGUAL Q5-15M PRN (Reason: Chest Pain) Label Comments: hasn't taken in two years Rx Instructions: do not exceed 3 doses per episode olmesartan [Benicar] 20 mg Tablet 10 mg PO DAILY rosuvastatin 20 mg Tablet 20 mg PO BEDTIME metoprolol tartrate 25 mg Tablet 25 mg PO BID acetaminophen 650 mg Tablet Extended Release 650 mg PO Q8H PRN (Reason: Pain) Discontinued aspirin 81 mg Capsule 81 mg PO DAILY Qty: 0 Follow up/Referrals: Rodney Moon MD [Primary Care Provider] - Deedee Triplett MD [Physician] - As previously scheduled (Follow up w/ Dr Triplett on 07/28/2022 @ 2:00 pm at [facility] Diet/Activity/Treatments Diet: Diet as Tolerated Activity: Walk frequently! Cold/Heat Therapy: Ice to knee as needed for pain. Skin/Wound/Dressing Care Report to your healthcare provider any signs of infection, such as:: chills, fever, night sweats, unusual drainage and unusual redness Dressing: May take off PRIMO wrap and shower on Jul 16. Leave Aquacel dressing on until follow up in office. No bathing or otherwise soaking incision. Call the office if the Aquacel dressing becomes saturated inside. Visit Report/Discharge Packet Instructions: DI for Knee Replacement Stand Alone Forms: Surgery Discharge Discharge Data Primary Care Provider: Rodney Moon Attending Provider: Deedee Triplett
[2022-07-14 07:17] LABS: Hematocrit 34.8 % (36-46)
[2022-07-14 08:08] VITALS: BP 125/54; PULSE 55; RESP 16; TEMP 36.7; O2SAT 96
--- NOTE | 2022-07-14 08:43 | PT.IIE ---
Current Diagnoses Unilateral primary osteoarthritis, right knee (07/13/22) Surgery Performed Operation Date: 07/13/22 14:45 Actual Procedures p Total Knee Arthroplasty(Right) - Deedee Triplett MD Surgical History (Last Updated 07/06/22 @ 13:47 by Jess Camacho, RN) H/O bilateral mastectomy History of appendectomy History of hysterectomy History of Billie fundoplication History of partial mastectomy of right breast (~2009) History of tonsillectomy History of tonsillectomy and adenoidectomy Hx of bilateral cataract extraction Hx of cholecystectomy Hx of heart artery stent (11/2019) Hx of left mastectomy (2007) S/P PTCA (percutaneous transluminal coronary angioplasty) Medical History (Last Updated 07/06/22 @ 13:30 by Jess Camacho RN) Anesthesia complication Anxiety Arthritis Breast cancer (~2006) CAD (coronary artery disease) Depression Eczema GERD (gastroesophageal reflux disease) HLD (hyperlipidemia) HTN (hypertension) Hypothyroidism Pre-diabetes Physical Therapy Inpatient Evaluation/Re-Eval M1 PT/OT-IP Prior Functional Status Start: 07/14/22 08:26 Freq: NEEDED Status: Active Protocol: Document 07/14/22 08:26 [facility] (Rec: 07/14/22 08:43 [facility] [id number]) Medical Review Prior Functional Status Medical History Reviewed Yes Diet/Fluid Consistency Regular Communication WNL Mobility and Gait pt was going to the gym 3x/ week and amb w/o AD Activities of Daily Living and IADL's Pt notes she is idnep w/ dressing and bathing. She notes difficulty w/donning socks d/t knee. She does most of the cooking and does half of the cleaning. does the rest of the cleaning Social History Household Members spouse Living Arrangements House Number of Floors (Floors) One Floor Number of Stairs To Enter/Railing? sunken living room; 3 TYREE w/ rail Home Environment Standard Height Toilet,Walk in Shower,Built-In Shower Seat Home Equipment Front Wheel Walker,Straight Cane,Grab Bars Near Toilet, Grab Bars In Shower Employment Status Retired M2 PT-IP Current Condition Start: 07/14/22 08:26 Freq: NEEDED Status: Active Protocol: Document 07/14/22 08:26 [facility] (Rec: 07/14/22 08:43 [facility] [id number]) Physical Therapy Current Condition Current Condition Evaluation Date 07/14/22 Treatment Diagnosis R TKA M3 PT-IP Subjective Start: 07/14/22 08:26 Freq: NEEDED Status: Active Protocol: Document 07/14/22 08:26 [facility] (Rec: 07/14/22 08:43 [facility] [id number]) Subjective Physical Therapy Visit Type Type Initial Evaluation Visit Start Time 07:30 Visit Stop Time 08:15 Total Visit Minutes 45 Number of WHIPPED TOPPING FINISHER Visits 0 Physical Therapy Visit Comments Patient Comments pt reports emesis last night Therapy Pain Assessment Pain When Pain Assessed During Mobility Pain Present Pain Present Pain Reported Location R knee Pain Management Techniques Apply Cold,Timing of Activity with Medications M4 PT-IP Mobility and Gait Start: 07/14/22 08:26 Freq: NEEDED Status: Active Protocol: Document 07/14/22 08:26 [facility] (Rec: 07/14/22 08:43 [facility] [id number]) PT-Bed Mobility Assessment Supine to Sit Supine to Sit Standby Assistance Scooting Scooting to Edge of Bed Standby Assistance PT-Transfer Assessment Sit to and From Stand Sit to and from Stand Contact Guard Assistance,Use of Upper Extremities Equipment Transfer Assistive Device Gait Belt,Front Wheeled Walker Orthotic/Prosthetic Devices or Brace: No Transfers Transfer Destination Chair Transfer Technique Stand Step Pivot Transfer Ability Level of Assist Contact Guard Assistance Comments Mobility Comments supine to sit slowly but SBA to scoot to EOB slowly. Pt felt nauseaus and had about 2 oz emesis. (BP supine 125/54> seated 152/65). She felt less lightheaded and stood CGA to FWW to transfer CGA w/FWW but did feel more lightheaded w/ transfer. Pt edu on packet info and given ice for R knee and reclined w/call light in reach. Stair Climbing Assessment Comments Stair Climbing Comments n/t PT-Balance Assessment Sitting Balance and Reactions Static Sitting Balance Ability Good Dynamic Sitting Balance Ability Good Standing Balance and Reactions Static Standing Balance Ability Good Dynamic Standing Balance Ability Fair Device Used FWW M5 PT-IP Objective Assessments Start: 07/14/22 08:26 Freq: NEEDED Status: Active Protocol: Document 07/14/22 08:26 [facility] (Rec: 07/14/22 08:43 [facility] [id number]) Orientation Orientation/Cognition Level of Alertness Alert Language Function Ability No Deficits Noted Safety Awareness Understands Safety Issues Memory Description No Deficits Noted Gross Range of Motion Lower Extremity ROM Assessment Right Impaired Strength Comments Strength Comments LLE WFL; RLE grossly 3/5 M6 PT-IP Treatment Start: 07/14/22 08:26 Freq: NEEDED Status: Active Protocol: Document 07/14/22 08:26 [facility] (Rec: 07/14/22 08:43 [facility] [id number]) Physical Therapy Treatment Exercises Exercises Ankle Pumps Education Education Provided Precautions,Weight Bearing Status,Post-Op Packet,Safety M7 PT-IP Assessment and Plan Start: 07/14/22 08:26 Freq: NEEDED Status: Active Protocol: Document 07/14/22 08:26 [facility] (Rec: 07/14/22 08:43 [facility] [id number]) PT Summary Assessment and Plan Potential Rehabilitation Potential Good Status of Condition at Evaluation Evolving Summary Impairments Pain,ROM,Strength,Balance,Bed Mobility,Transfers,Gait, Activity Tolerance Assessment Summary Pt presents day 1 s/p R TKA w/ good pain control, but pt having some nausea since surgery and lightheadedness w/ mobility, which is limiting her mobility at this time. She understands safety issues and is prepared at home and has to assist. At this time,s hew as only able to transfer d/t nausea and lightheadedness. She would benefit from cont skilled PT to progress mobility and improve gait in order to return home safely. Goals Bed Mobility Goal Independent Transfer Goal Independent Gait Goal Independent,Front Wheel Walker Gait Distance 125ft Other Goals up/down 3 stairs w/rail SBA Days to Meet Goals 5 Frequency of Treatment Frequency Of Treatment Twice a Day Treatment Plan Physical Therapy Treatment Plan Bed Mobility Training,Transfer Training,Gait Training, Therapeutic Exercise,Balance Retraining,Post Op Education, Discharge Planning,Hot or Cold Pack,Neuromuscular Re-ed, Manual Therapy Other Recommendations and Next Treatment try to progress gait and Focus stairs if appropraite, TKA exercises Weight Bearing Status Weight Bearing Status Weight Bear as Tolerated Recommendations To Nursing Amount of Assist Needed 1 Person Assist Discharge Recommendations PT Discharge Recommendations Home with Assistance, Outpatient PT Transportation Needs at Discharge Private Vehicle
[2022-07-14] MEDS: CEFAZOLIN 2 GM/100 ML PREMIX 100 ML IV (08:45)
[2022-07-14] MEDS: ASPIRIN EC 81 MG TABLET PO ×2 (09:39→19:44)
--- NOTE | 2022-07-14 11:43 | CM.DANOTE ---
DCP: Case received, EMR reviewed and met with patient. Introduced self and role. Was able to obtain information regarding patient's baseline activity level at home prior to hospitalization. DCP assessment completed with information currently available. Patient is a 77 year old female who admitted yesterday morning to the care of the orthopedic team. PCP: Dr. Moon. Payer: confirmed: Medicare/ for Life. Patient came to the hospital via private vehicle for a right total knee arthroplasty. Patient has history of right knee osteoarthritis. Met with patient in her room. She is alert and oriented, and was sitting up in her chair. She had been having some nausea. Patient resides in [place] with spouse, Chalo, who will be assisting patient at home. Patient does not use DME at her baseline. She has been here before with other surgeries. P: Patient has discharge orders for today, pending working with PAshlie. Radha Flores RN/Software Project Lead Discharge Planning/Care Management Advanced directive, confirm from FAMILY Start: 07/13/22 20:59 Freq: Q24H Status: Active Protocol: Document 07/13/22 20:59 AKP (Rec: 07/13/22 20:59 AKP [id number]) Advance Directive, confirm on record Time 20:59 Person contacted patient to ask Copy received No CM Discharge Assessment Start: 07/14/22 11:39 Freq: Status: Active Protocol: Document 07/14/22 11:41 VM (Rec: 07/14/22 11:42 [id number]) Discharge Planning Assessment Assigned Project Accountant Radha Flores RN/Software Project Lead Advance Directives? Yes Advance Directives on File No History Provided By Patient,Medical Record Prior Living Arrangements House Household Members spouse Type of transporation used prior to Relies on Others admit Independent with ADL's Yes Is patient alert and oriented? Yes Needs Assistance With Home Chores / Shopping Caregiver for Another No Barriers to Discharge No Discharge Plan Home Transportation Arrangement Spouse Referrals Initiated None needed Whiteboard Updated in Patient Room with Yes name and ext. # of Project Accountant Review Status In Process Next Review Type Continued Stay Review Pre-Anesthesia Assessment Start: 05/24/22 12:55 Freq: Status: Active Protocol: Document 07/07/22 12:23 CAB (Rec: 07/06/22 13:47 CAB [id number]) Pre-Anesthesia Assessment Preferred Name Marisel Patient Information Reviewed Via Phone Assessment Diagnostic Results BMP/CMP,CBC,EKG Comment Labs/EKG done, not here, COVID screen @ 07/10/22 Primary Care Provider Rodney Moon Seen Specialist in Last 12 Months Yes Specialist Seen Superintendent Custodian Janitor,Orthopedist Primary Language Syriac Pipelines Superintendent Required No Height 5 ft 2.5 in Weight 180 lb Body Mass Index (BMI) 32.3 Hearing Ability Normal Visual Assist Glasses Dentition Type Teeth, Natural Present Barriers to Learning None,Memory Comment Memory problems especially in the afternoons Hx Anesthesia Reactions Yes: I was out of control with Dilaudid Hx Family Anesthesia Reaction No Hx Malignant Hyperthermia No Hx Blood Transfusions No Anesthesia Review Requested No alcohol intake former Smoking Status Never smoker Substance Use Type does not use Pain Present Pain Reported Musculoskeletal Symptoms Abnormal Gait,Back Pain, Difficulty Walking,Joint Pain History of Falling (Recent or History of No ) Patient is completely paralyzed or No completely immobile Mental Status Oriented to own ability Is patient on oxygen? No Does patient have LOMELI/SOB No Hx Sleep Apnea No Currently Taking a Beta So Yes: Metoprolol Hx Chest Pain Yes: Prior to stent, nothing since Hx SOB No Hx Syncope or Dizziness No Anti-Coagulant Therapy Yes: ASA 81mg will hold 7 days prior per Surgeon Has a Superintendent Custodian Janitor Yes: Last visit 03/12/[address] Hall Cardiac Testing Recent Echo @ [facility] 03/11, Lexiscan @ 04/13/22-WNL Hx Pacemaker/ICD No Pacemaker Rep Required? No Cardiac Clearance Received Yes Comment Cardiac records scanned Diet Type At Home Regular Dysphagia No Gastrointestinal Symptoms Constipation,Reflux Bladder Pattern Frequency,Incontinent,Urgency Urinary Catheter Present No Hx Urinary Self Catheterization No Diabetes No: Pre-diabetes, last A1c over 8.0% per pt HgbA1C 6.9 Date 06/08/22 Patient No Lactating No Presence of External or Internal Medical Yes: Cardiac stent Devices Have you had any close contact with No someone diagnosed with COVID-19? Received a COVID vaccine? Yes Received all doses? Yes Marital Status Lives With spouse Current Living Arrangements House Number of Floors (Floors) One Floor Support System Spouse Does the Patient Have Assistance After Yes Surgery Patient Discharge Plan Description Return Home Comment Pt advised overnight length of stay per surgeon Feels Safe in Current Environment Yes Been Physically Hurt or Threatened By a No Person in Current Environment Do you have thoughts of harming yourself None or others? Are you currently considering suicide? No Do you have a plan to hurt yourself or No Plan others? Do You Have Any Spiritual Beliefs That No May Affect Your HC Choices? Do You Have Any Cultural Practices That No May Affect Your HC Choices? Comment Taoist Who Can We Speak to About Patient's Care Family, friends Identifying Code for Release of Patient Declines to issue Information Health Care Proxy/Next of Kin Chalo () Health Care Proxy Emergency Contact Name Chalo () Emergency Contact Advance Directives? Yes Power of Job Order Clerk Yes Power of Job Order Clerk Name Snow Hilario Power of Job Order Clerk PAC Instructions Do not shave/clip surgical site,Durable medical equipment ,Medications to take/avoid, Nasal antibiotic,No ETOH/ petroleum product on skin DOS, NPO,Pre-surgical wash,Sensory aids,Sturdy shoes/comfortable clothes,Do not bring valuables and remove jewelry
[2022-07-14 12:00] VITALS: BP 148/69; PULSE 55; RESP 17; TEMP 36.2; O2SAT 95
[2022-07-14] MEDS: DOCUSATE 100 MG CAPSULE PO ×2 (12:28→19:41)
--- NOTE | 2022-07-14 14:36 | PC.NURSE ---
pt had not yet been able to void at 1130 a.m. She is bladder scanned and results were <50cc. She has not been able to tolerate food or much water. She drinks a cup of water but then vomits almost the same equivalent. She is assisted to the bsc, and is able to void after a long period of time 300 cc medium yellow urine. Zofran administered and she is placed back on IVF LR at 100 ml/hr.
--- NOTE | 2022-07-14 15:44 | PT.IPTN ---
Addendum entered and electronically signed by Dalila Whitehead, SARA 07/14/22 16:24: BPs during tx: supine: BP 178/58 HR 64 SaO2 95% on RA Post SPT mobility: 173/ 71 HR 65 SaO2 98% on RA Original Note: Current Diagnoses Unilateral primary osteoarthritis, right knee (07/13/22) Surgery Performed Operation Date: 07/13/22 14:45 Actual Procedures p Total Knee Arthroplasty(Right) - Deedee Triplett MD Physical Therapy Treatment Note M2 PT-IP Current Condition Start: 07/14/22 08:26 Freq: NEEDED Status: Active Protocol: Document 07/14/22 14:58 SP (Rec: 07/14/22 16:22 SP [id number]) Physical Therapy Current Condition Current Condition Evaluation Date 07/14/22 Treatment Diagnosis R TKA M3 PT-IP Subjective Start: 07/14/22 08:26 Freq: NEEDED Status: Active Protocol: Document 07/14/22 14:58 SP (Rec: 07/14/22 16:22 SP [id number]) Subjective Physical Therapy Visit Type Type Treatment Note Visit Start Time 14:58 Visit Stop Time 15:44 Total Visit Minutes 46 Number of CLINICAL SERVICES DIRECTOR Visits 1 Physical Therapy Visit Comments Patient Comments Pt stated still getting nausious with mobility but willing to work with therapy. Patient Goals Return home with to assist her. Therapy Pain Assessment Pain When Pain Assessed During Mobility Pain Present Pain Present Pain Reported Location R knee Scale Used achy pain during mobility, no scale rating given Description Aching,With Movement Pain Behaviors Facial Grimacing Pain Management Techniques Distraction,Modification of Treatment,Re-positioning, Timing of Activity with Medications M4 PT-IP Mobility and Gait Start: 07/14/22 08:26 Freq: NEEDED Status: Active Protocol: Document 07/14/22 14:58 SP (Rec: 07/14/22 16:22 SP [id number]) PT-Bed Mobility Assessment Supine to Sit Supine to Sit Standby Assistance,1 Person Assistance Sit to Supine Sit to Supine Standby Assistance,1 Person Assistance Scooting Scooting to Edge of Bed Standby Assistance PT-Transfer Assessment Sit to and From Stand Sit to and from Stand Standby Assistance,Contact Guard Assistance,Use of Upper Extremities Equipment Transfer Assistive Device Gait Belt,Front Wheeled Walker Orthotic/Prosthetic Devices or Brace: No Transfers Transfer Destination Bed,Chair,Bedside Commode Transfer Technique pt ambulated with FWW Transfer Ability Level of Assist Standby Assistance,Contact Guard Assistance,Use of Upper Extremities Comments Mobility Comments Pt slow to mobilize due to R knee pain and nausea, burping, no productive emesis but keep emesis bag with her throughout tx. CLINICAL SERVICES DIRECTOR instructed R knee post op HEP: AP, QS, HS AROM approx 60 deg flexion 5 reps each, discussed can use gait belt on R foot for AAROM but not performed. Completed HOB flat Supine>sit SBA, RUE assisted RLE to EOB, heavy BUE to scoot to EOB with extra time needed. STS CGA w/FWW, cued push from bed to stand. SPT bed>chair w/ FWW CGA/SBA, sat 2 min rest in chair, STS/ gait forward to closed BSC near tv approx 10 ft, seated rest 2 min, STS gait return L side bed w/FWW SBA, stand>sit> supine w/ GB on RLE self support in bed SBA. Pt requested needed to get up to BSC before left: supine>sit, scoot to EOB, SPT w/FWW to BSC CG/SBA. CLINICAL SERVICES DIRECTOR provided covered room bench back cushion under BLEs for support so BLEs didn' t dangle. CLINICAL SERVICES DIRECTOR called PERSONNEL SECURITY ASSISTANT and PERSONNEL SECURITY ASSISTANT took over care, call light in reach for pt, PERSONNEL SECURITY ASSISTANT in room when left. CLINICAL SERVICES DIRECTOR recommended PERSONNEL SECURITY ASSISTANT lower BSC 2- 3 notches after uses for proper fit. CLINICAL SERVICES DIRECTOR will reassess height tomorrow. Gait Assessment Gait Gait Assistance Required: Standby Assistance,1 Person Assist Distance (Feet) 10 Assistive Devices Assistive Device Gait Belt,Front Wheeled Walker Orthotic/Prosthetic Devices or Brace: No Gait Deviations General Gait Pattern Antalgic,Decreased Stride Length,Decreased Feet Clearance,Step-to Gait Factors Limiting Gait Function Factors Limiting Gait Function Decreased Activity Tolerance, Decreased Strength,Difficulty Following Directions,Pain,Poor Safety Awareness Comments Gait Comments step to gait w/ FWW, safety cues for proper hand placement during transfers. Stair Climbing Assessment Comments Stair Climbing Comments Unable to assess stairs due to nausea and decreased stance time able/heavy BUE on FWW, low endurance in standing. WIll need to complete 3 stairs L HR to allow enter home. PT-Balance Assessment Sitting Balance and Reactions Static Sitting Balance Ability Good Dynamic Sitting Balance Ability Good Standing Balance and Reactions Static Standing Balance Ability Good Dynamic Standing Balance Ability Fair Device Used FWW M5 PT-IP Objective Assessments Start: 07/14/22 08:26 Freq: NEEDED Status: Active Protocol: Document 07/14/22 08:26 [facility] (Rec: 07/14/22 08:43 [facility] [id number]) Orientation Orientation/Cognition Level of Alertness Alert Language Function Ability No Deficits Noted Safety Awareness Understands Safety Issues Memory Description No Deficits Noted Gross Range of Motion Lower Extremity ROM Assessment Right Impaired Strength Comments Strength Comments LLE WFL; RLE grossly 3/5 M6 PT-IP Treatment Start: 07/14/22 08:26 Freq: NEEDED Status: Active Protocol: Document 07/14/22 14:58 SP (Rec: 07/14/22 16:22 SP [id number]) Physical Therapy Treatment Exercises Exercises Ankle Pumps,Quad Sets,Heel Slides,Seated Knee Flexion/ Extension Knee ROM Measurement approx R knee 60 deg flexion AROM Education Education Provided Precautions,Weight Bearing Status,Post-Op Packet,Safety Other Treatments Other Treatment Performed Instructed pt not to put rolled up towel or pillow under R surgical knee to allow knee extension alignment for standing stability, pt verbalized understanding and in agreement. M7 PT-IP Assessment and Plan Start: 07/14/22 08:26 Freq: NEEDED Status: Active Protocol: Document 07/14/22 14:58 SP (Rec: 07/14/22 16:22 SP [id number]) PT Summary Assessment and Plan Potential Rehabilitation Potential Good Status of Condition at Evaluation Evolving Summary Impairments Pain,ROM,Strength,Balance,Bed Mobility,Transfers,Gait, Activity Tolerance Progress Towards Goals Slow Progress due to Pain,Slow Progress due to Medical Issues,Slow Progress due to Activity Tolerance Assessment Summary Pt required increased time for mobilization due to limited by pain, nausea and hypertension during tx today. Decreased strength/activity tolerance. SBA during bed mob, CG/SBA during STS w/ FWW cues proper hand placement push from bed/chair arms stand, reach back sit. Gait w/ FWW SBA up to 10 ft x2 before need seated rest between distances in room, heavy BUE WB on FWW. Recommending HHPT vs outpt therapy. Set up CGT with tomorrow 07/15 at 1030am for progression transfers, gait, stair mgt. Will assess progress, if unable to progress strength, will need recommend SNF to progress for safety enter home . Goals Bed Mobility Goal Independent Transfer Goal Independent Gait Goal Independent,Front Wheel Walker Gait Distance 125ft Other Goals up/down 3 stairs w/rail SBA Days to Meet Goals 5 Frequency of Treatment Frequency Of Treatment Twice a Day Treatment Plan Physical Therapy Treatment Plan Bed Mobility Training,Transfer Training,Gait Training, Therapeutic Exercise,Balance Retraining,Post Op Education, Discharge Planning,Hot or Cold Pack,Neuromuscular Re-ed, Manual Therapy Other Recommendations and Next Treatment further distance gait, stairs, Focus CGT 07/15 at 1030 w/ Weight Bearing Status Weight Bearing Status Weight Bear as Tolerated Recommendations To Nursing Amount of Assist Needed Standby Assistance,1 Person Assist Discharge Recommendations PT Discharge Recommendations Home with Assistance,Home Health,Outpatient PT Transportation Needs at Discharge Private Vehicle
[2022-07-14 16:00] VITALS: BP 173/71; PULSE 66; RESP 17; TEMP 36.6; O2SAT 98
[2022-07-14] MEDS: ONDANSETRON 4 MG ODT PO (16:55)
[2022-07-14] MEDS: METOPROLOL IR 25 MG TABLET PO (19:41)
[2022-07-14] MEDS: AMLODIPINE 5 MG TABLET 2.5 MG PO (19:41)
[2022-07-14] MEDS: hydroCHLOROthiazide 25 MG TABLET 50 MG PO (19:44)
[2022-07-14] MEDS: ATORVASTATIN 20 MG TABLET 40 MG PO (19:45)
[2022-07-14 20:00] VITALS: BP 139/57; PULSE 60; RESP 18; TEMP 36.3; O2SAT 94
[2022-07-14] MEDS: OXYCODONE IR 10 MG TABLET PO (22:47)
[2022-07-15] VITALS: BP 125/51; PULSE 64; RESP 18; TEMP 36.9; O2SAT 93
[2022-07-15 04:07] VITALS: BP 141/52; PULSE 60; RESP 18; TEMP 36.4; O2SAT 94
--- NOTE | 2022-07-15 04:51 | PC.NURSE ---
Pt rested quietly through night. Denies discomfort. IVF LR @ 100cc/hr infusing into RFA as per orders. Aquacell dsg CDI. Call light w/in reach, bed alarm on for pt safety. Continue w/plan of care.
[2022-07-15] MEDS: LEVOTHYROXINE 75 MCG TABLET PO (05:59)
[2022-07-15] MEDS: ACETAMINOPHEN 325 MG TABLET 650 MG PO ×2 (06:00→11:11)
[2022-07-15] MEDS: PANTOPRAZOLE DR 40 MG TABLET PO (06:08)
--- NOTE | 2022-07-15 07:14 | PM.PNPO.1 ---
Subjective Subjective Date Patient Seen: 07/15/22 Time Patient Seen: 07:14 Interval history: Vera's nausea resolved last night. She is feeling much better today and is ready to go home. She has worked w/ PT and they feel she is appropriate for homegoing with outpt PT. Exam Vital Signs (past 8 hours): - 07/15/22 00:00 07/15/22 04:07 Temperature 98.4 F 97.6 F Pulse Rate 64 60 Respiratory Rate 18 18 Blood Pressure 125/51 L 141/52 H Pulse Oximetry 93 94 Oxygen Flow Rate 0 0 Oxygen Delivery Method Room Air Oxygen Flow Rate 0 Narrative Exam Narrative: 5/5 strength in hip flexors, quadriceps, hamstrings, DF, PF, EHL; sensation to light touch intact in RLE. Calf soft, compressible, nontender and without palpable cords or masses. Aquacel dressing CDI. Objective Labs Result Diagrams: 07/14/22 06:41 Labs: Laboratory Results - last 24 hr 07/14/22 06:41 Hgb 12.0 Hct 34.8 L PFSH Medical History (Updated 07/06/22 @ 13:30 by Jess Camacho RN) Anesthesia complication Anxiety Arthritis Breast cancer (~2006) CAD (coronary artery disease) Depression Eczema GERD (gastroesophageal reflux disease) HLD (hyperlipidemia) HTN (hypertension) Hypothyroidism Pre-diabetes Surgical History (Updated 07/15/22 @ 07:59 by Teresa Rivas PA-C) H/O bilateral mastectomy History of appendectomy History of hysterectomy History of Billie fundoplication History of partial mastectomy of right breast (~2009) History of tonsillectomy History of tonsillectomy and adenoidectomy Hx of bilateral cataract extraction Hx of cholecystectomy Hx of heart artery stent (11/2019) Hx of left mastectomy (2007) S/P PTCA (percutaneous transluminal coronary angioplasty) Social History marital status: household members: spouse occupational status: unemployed Smoking Status: Never smoker alcohol intake: never substance use type: does not use Assessment & Plan Post-op Assessment and plan (1) Total knee replacement status: Assessment and Plan narrative: Discharge home. Pt has postop meds, will add ondansetron for nausea. Postoperative Procedures: Procedures Operation Date: 07/13/22 14:45 Actual Procedure Side Surgeon p Total Knee Arthroplasty Right Deedee A Triplett, MD Postoperative day: 2
[2022-07-15 08:00] VITALS: BP 149/80; PULSE 60; RESP 18; TEMP 36.5; O2SAT 96
[2022-07-15] MEDS: DOCUSATE 100 MG CAPSULE PO (09:06)
[2022-07-15] MEDS: MULTIVITAMIN 1 TABLET 1 TAB PO (09:06)
[2022-07-15] MEDS: ASPIRIN EC 81 MG TABLET PO (09:06)
[2022-07-15] MEDS: METOPROLOL IR 25 MG TABLET PO (09:06)
--- NOTE | 2022-07-15 10:00 | PT.IPTN ---
Current Diagnoses Unilateral primary osteoarthritis, right knee (07/14/22) Presence of unspecified artificial knee joint (07/14/22) Surgery Performed Operation Date: 07/13/22 14:45 Actual Procedures p Total Knee Arthroplasty(Right) - Deedee Triplett MD Physical Therapy Treatment Note M2 PT-IP Current Condition Start: 07/14/22 08:26 Freq: NEEDED Status: Discharge Protocol: Document 07/15/22 09:28 SP (Rec: 07/15/22 19:20 SP [id number]) Physical Therapy Current Condition Current Condition Evaluation Date 07/14/22 Treatment Diagnosis R TKA M3 PT-IP Subjective Start: 07/14/22 08:26 Freq: NEEDED Status: Discharge Protocol: Document 07/15/22 09:28 SP (Rec: 07/15/22 19:20 SP [id number]) Subjective Physical Therapy Visit Type Type Treatment Note Visit Start Time 09:28 Visit Stop Time 10:00 Total Visit Minutes 32 Notes Vitals: seated in chair: 132/56 HR 60 SaO2 97% on RA in room, completed CGT including donnine GB and providing physical assist required during tx. Number of BIOMEDICAL ENGINEERING DIRECTOR Visits 1 Physical Therapy Visit Comments Patient Comments Pt reported not nauseous today and beleives able to go do stairs. Patient Goals Return home with to assist her. Therapy Pain Assessment Pain When Pain Assessed During Mobility Pain Present Pain Present Pain Reported Location R knee Scale Used achy pain during mobility, no scale rating given Description Aching,With Movement Pain Behaviors Facial Grimacing Pain Management Techniques Distraction,Modification of Treatment,Re-positioning, Timing of Activity with Medications M4 PT-IP Mobility and Gait Start: 07/14/22 08:26 Freq: NEEDED Status: Discharge Protocol: Document 07/15/22 09:28 SP (Rec: 07/15/22 19:20 SP [id number]) PT-Transfer Assessment Sit to and From Stand Sit to and from Stand Standby Assistance,Contact Guard Assistance,Use of Upper Extremities Equipment Transfer Assistive Device Gait Belt,Front Wheeled Walker Orthotic/Prosthetic Devices or Brace: No Transfers Transfer Destination Chair,Wheelchair Transfer Technique pt ambulated with FWW Transfer Ability Level of Assist Standby Assistance,Contact Guard Assistance,Use of Upper Extremities Comments Mobility Comments Pt was up in chair when arrived, stable vitals and no nausea today. Scoot to EOchair , donned gait belt, STS w/ FWW and chair arms, gait w/ FWW to w/c in hallway 20 ft CG/ SBA, good receiprocal patterning and RLE gait phases, SPT and back step w/ FWW/ proper hand placement. Pt wheeled to stairs. STS, gait 3 step to stairs, ascend/descend 3 stair R HR/ SPC in LUE CG/ Min A ( to challenging BUE on R HR, provided SPC has at home to use), cued contact hand over hand SPC stability while providing trunk support step to patterning pt heavy BUE support and decrease RLe stance time but good quad facilitation stability. Pt tired out and requested wheeled back to room. Once in room, pt STS from w/c gait to chair 15 ft CGA/close SBA stagger stepping Min UE WB on FWW, pivot back step good hand placement to sit chair. Pt requested elevate BLEs and provide CP to R knee. Pt is ok to return home with to assist her 07/02 available when medically cleared. She is set up with outpt therapy. Gait Assessment Gait Gait Assistance Required: Standby Assistance,Contact Guard Assist Distance (Feet) 35 Assistive Devices Assistive Device Gait Belt,Front Wheeled Walker Orthotic/Prosthetic Devices or Brace: No Gait Deviations General Gait Pattern Antalgic,Decreased Stride Length,Decreased Feet Clearance,Step-to Gait Factors Limiting Gait Function Factors Limiting Gait Function Decreased Activity Tolerance, Decreased Strength,Difficulty Following Directions,Pain Comments Gait Comments improved stagger step gait patterning up to 20 ft tolerance distance + 15 ft. Improved good safety proper hand placement and fWW positioning this tx. Stair Climbing Assessment Evaluation Level of Assist On Stairs Contact Guard Assistance, Minimal Assistance,1 Person Assistance Devices Stair Climbing Assistive Devices Straight Cane,Right Railing Technique/Endurance Stair Climbing Direction Ascend and Descend Stair Climbing Technique Step to Step Number of Steps Climbed 3 Stair Climbing Set # Repetitions (reps) 1 Comments Stair Climbing Comments step to patterning, heavy RUE on HR, LUE use SPC, stabilize initially ascending, step to patterning descend support only at trunk slow controlled. PT-Balance Assessment Sitting Balance and Reactions Static Sitting Balance Ability Normal Dynamic Sitting Balance Ability Good Standing Balance and Reactions Static Standing Balance Ability Good Dynamic Standing Balance Ability Fair Device Used FWW M5 PT-IP Objective Assessments Start: 07/14/22 08:26 Freq: NEEDED Status: Discharge Protocol: Document 07/14/22 08:26 [facility] (Rec: 07/14/22 08:43 [facility] [id number]) Orientation Orientation/Cognition Level of Alertness Alert Language Function Ability No Deficits Noted Safety Awareness Understands Safety Issues Memory Description No Deficits Noted Gross Range of Motion Lower Extremity ROM Assessment Right Impaired Strength Comments Strength Comments LLE WFL; RLE grossly 3/5 M6 PT-IP Treatment Start: 07/14/22 08:26 Freq: NEEDED Status: Discharge Protocol: Document 07/15/22 09:28 SP (Rec: 07/15/22 19:20 SP [id number]) Physical Therapy Treatment Education Education Provided Precautions,Safety Other Treatments Other Treatment Performed Reviewed, not to put rolled up towel or pillow under R surgical knee to allow knee extension alignment for standing stability, pt verbalized understanding and in agreement. M7 PT-IP Assessment and Plan Start: 07/14/22 08:26 Freq: NEEDED Status: Discharge Protocol: Document 07/15/22 09:28 SP (Rec: 07/15/22 19:20 SP [id number]) PT Summary Assessment and Plan Potential Rehabilitation Potential Good Status of Condition at Evaluation Evolving Summary Impairments Pain,ROM,Strength,Balance,Bed Mobility,Transfers,Gait, Activity Tolerance Progress Towards Goals Progressing Toward Goals,Slow Progress due to Pain,Slow Progress due to Activity Tolerance Assessment Summary Pt reports unsure if will sleep in recliner. Pt improved further distance gait 20 ft, 15 ft w/ FWW CG/ sBA, 3 stair mgt R HR/ LUE SPC CG/ MIN A . Pt is ok to return home assist her when medically cleared. She stated already set up with outpt therapy and understanding walk hrly and HEP 2-3x/ daily. Goals Bed Mobility Goal Independent Transfer Goal Independent Gait Goal Independent,Front Wheel Walker Gait Distance 125ft Other Goals up/down 3 stairs w/rail SBA Days to Meet Goals 5 Frequency of Treatment Frequency Of Treatment Twice a Day Treatment Plan Physical Therapy Treatment Plan Bed Mobility Training,Transfer Training,Gait Training, Therapeutic Exercise,Balance Retraining,Post Op Education, Discharge Planning,Hot or Cold Pack,Neuromuscular Re-ed, Manual Therapy Other Recommendations and Next Treatment check ROM R knee, post op ex, Focus gait further distance w/ FWW Weight Bearing Status Weight Bearing Status Weight Bear as Tolerated Recommendations To Nursing Amount of Assist Needed Standby Assistance Discharge Recommendations PT Discharge Recommendations Home with Assistance, Outpatient PT Transportation Needs at Discharge Private Vehicle
[2022-07-15] MEDS: OXYCODONE IR 5 MG TABLET PO (11:11)
--- NOTE | 2022-07-15 11:50 | PC.NURSE ---
Late entry for shift summary and discharge today at 1113: Patient cleared by physical therapy for discharge to home today with her . Patient states she finally turned a corner last night and no longer had nausea, low blood pressures and feeling much better today. IV was removed by BUSINESS TRANSFORMATION CONSULTANT. Discharge teaching completed with kin RN. patient states she has no further questions or concerns. She states she has follow up appointment and physical therapy scheduled. Dressing with ronald wrap in place and intact. Patient was escorted out by kin FLETCHER via wheelchair with all her belongings.
== END 2022-07-15 11:15 | disposition home or self-care (01) ==
LOC: OR 07-15 08:12 → AC 07-15 08:12
PROVIDERS: Admitting Provider Orthopaedic Surgery; PCP Family Medicine; Referring Provider Orthopaedic Surgery; Visit Provider Orthopaedic Surgery
PROC: 0SRC0JZ Replacement of Right Knee Joint with Synthetic Substitute, Open Approach (ICD-10-PCS; CPT 27447; principal; 2022-07-13 14:45)
DX: M17.11 Unilateral primary osteoarthritis, right knee (principal); R33.8 Other retention of urine
CPT/HCPCS: 27447; 73560; 85014; 85018; 94760; 97110; 97116; 97162; 97530; 97535; C1776; G0378; C1713; C9290; J0690; J1100; J2250; J2405; J2704; J3010

== ENCOUNTER → 2022-11-22 14:29 | Outpatient (CLI) | payer MEDICARE, OTHER, SELFPAY ==
[2022-07-13 20:50] VITALS: BMI 32.9
--- NOTE | 2022-11-22 14:32 | DI.ECHO.S_ITS ---
[facility] +---------+ : : [address] : [place] : : : : [id number] : : : : Phone: [phone] Echocardiogram Report + + :Name: SELAM RAMIREZ Study Date: 11/22/2022 Height: 62 in : :[facility] ReadingLocation: Weight: 185 lb : : Gender: Female BSA: 1.8 m2 : :: 1945 Age: 77 yrs BP: 115/76 mmHg: :Reason For Study: ATHEROSCLEROTIC HEART DISEASE HR: 62 : :Ordering Physician: MAURIZIO, : :AVA Walker Performed By: RAMONA SWANN : :Referring: AVA STEVEN : + + Interpretation Summary 1) Normal left ventricular thickness, size, wall motion, and systolic function (EF 60-65%). 2) Normal right ventricular size and function. 3) No significant valvular abnormalities. 4) No prior Echo available for comparison. Procedure: A two-dimensional transthoracic echocardiogram with color flow and Doppler was performed. The study quality was technically adequate. There is no prior echocardiogram noted for this patient. The patient was in normal sinus rhythm during the exam. Left Ventricle: The left ventricle is normal in size and wall thickness. Left ventricular systolic function is normal. The ejection fraction is estimated to be 60-65%. Left ventricular wall motion is normal. Diastolic parameters suggest a pseudonormalization pattern, consistent with probable elevated filling pressures. Right Ventricle: The right ventricle is normal in size and function. Atria: There is moderate biatrial enlargement. There is no Doppler evidence for an interatrial shunt. Mitral Valve: The mitral valve is normal in structure and function. There is trace mitral regurgitation. Aortic Valve: The aortic valve is trileaflet. The aortic valve opens well. There is no aortic valve stenosis. No aortic regurgitation is present. Tricuspid Valve: The tricuspid valve is normal in structure and function. There is mild tricuspid regurgitation. The right ventricular systolic pressure is estimated to be at least 27 mmHg based on an estimated right atrial pressure of 3 mm Hg. Pulmonic Valve: The pulmonic valve leaflets are thin and pliable; valve motion is normal. There is trace pulmonic regurgitation. Great Vessels: The aortic root is normal size. The ascending aorta is at the upper limits of normal in size. The IVC is of normal diameter and collapses greater than 50% with a sniff. This suggests a low right atrial pressure of 3 mm Hg. Pericardium/ Pleura There is no pericardial effusion. There is no pleural effusion. MMode/2D Measurements & Calculations LVIDd: 4.1 cm LVOT diam: 1.9 cm LVIDs: 2.8 cm Ao root diam: 2.9 cm FS: 31.7 % asc Aorta Diam: 3.9 cm IVSd: 0.90 cm LVPWd: 1.0 cm LV hernandez. diameter/BSA (cm/m^2): 2.2 LV sys. diameter/BSA (cm/m^2): 1.5 LA A2 area: 25.0 cm2 RA long axis: 5.6 cm LA A4 area: 25.1 cm2 LA length (vol): 6.6 cm LA vol: 81.3 ml LA vol index: 44.0 ml/m2 LVLs ap4: 5.7 cm LVLd ap2: 6.6 cm LVLs ap2: 5.6 cm TAPSE_phl: 2.4 cm Doppler Measurements & Calculations Ao V2 max: 179.0 cm/sec LVOT Max Yuri: 146.0 cm/sec Ao V2 mean: 127.0 cm/sec LV V1 max P.5 mmHg Ao max P.0 mmHg LV V1 VTI: 35.9 cm Ao mean P.0 mmHg TERRY(I,D): 2.3 cm2 Ao V2 VTI: 44.6 cm TERRY(V,D): 2.3 cm2 sev ratio: 0.80 TERRY indexed to BSA (cm^2/m^2): 1.2 MV E max yuri: 106.0 cm/sec TR max yuri: 243.0 cm/sec MV A max yuri: 120.0 cm/sec TR max P.6 mmHg MV E/A: 0.88 PA V2 max: 93.3 cm/sec Med Peak E' Yuri: 6.1 cm/sec PA V2 mean: 70.9 cm/sec E/E' med: 17.4 PA mean P.0 mmHg Lat Peak E' Yuri: 5.3 cm/sec PA pr(Accel): -3.3 mmHg E/E' lat: 19.9 E/e' average: 18.7 MV dec time: 0.26 sec SV(LVOT): 101.8 ml AV VR_phl: 0.82 TERRY(VTI)/BSA_phl: 1.2 MV P1/2t-pr_phl: 75.0 msec Reading Physician:10:14 AM
== END ==
PROVIDERS: PCP Family Medicine; Referring Provider Family Medicine; Visit Provider Family Medicine
DX: I25.10 Atherosclerotic heart disease of native coronary artery without angina pectoris (principal); I07.1 Rheumatic tricuspid insufficiency
CPT/HCPCS: 93306

== ENCOUNTER → 2023-01-11 16:13 | Outpatient (CLI) | payer MEDICARE, OTHER, SELFPAY ==
[2022-07-13 20:50] VITALS: BMI 32.9
--- NOTE | 2023-01-11 | DI.US.S_ITS ---
PROCEDURE: US ABDOMEN COMPLETE INDICATIONS: ABDOMINAL PAIN TECHNIQUE: Real-time scanning was performed of the abdominal and retroperitoneal organs, with image documentation. COMPARISON: [facility], CT, ABDOMEN WITH CONTRAST, 09/18/2008, 12:09. [facility], US, US ABDOMEN COMPLETE, 02/15/2018, 13:13. [facility], US, ABDOMEN COMPLETE, 10/03/2014, 9:32. [facility], US, ABDOMEN COMPLETE, 04/18/2014, 9:23. [facility], US, ABDOMEN COMPLETE, 04/29/2011, 7:57. FINDINGS: Liver: The liver is normal in size and diffusely increased in echogenicity with posterior acoustic attenuation. Focal area of fatty sparing is seen at the posterior left hepatic lobe measuring 3.2 cm Gallbladder: Status post cholecystectomy Biliary ducts: Intrahepatic bile ducts are non-dilated. Extrahepatic ducts are dilated with fusiform dilation of common bile duct measuring up to 13 mm in diameter. Pancreas: Pancreas is not well visualized due to overlying bowel gas. Spleen: Spleen is normal in size and homogeneous in echotexture. Kidneys: Kidneys are normal in size and echotexture. Right kidney measures 8.6 cm long; left kidney measures 10.6 cm long. No hydronephrosis or nephrolithiasis. There is a 3.9 x 2.5 x 3.0 cm mildly hypoechoic lesion in the interpolar region of the left kidney with internal vascularity. When compared to the CT from 09/18/2008, this area appears similar and is likely a partially duplex collecting system versus column of Gustavo. A subcentimeter cyst is seen at the inferior pole of the left kidney. A simple cyst is seen in the interpolar region of the right kidney. Aorta: Visualized aorta is normal in caliber at less than 3 cm. Iliacs: Proximal common iliac arteries are normal in caliber at less than 2.5 cm. IVC: Intrahepatic inferior vena cava is patent. Miscellaneous: No free abdominal fluid. IMPRESSION: 1. Increased hepatic echogenicity is seen, most commonly secondary to diffuse hepatic steatosis but other sources of hepatocellular disease cannot be excluded. Recommend clinical correlation. 2. Diffuse enlargement of the extrahepatic bile ducts to 13 mm, which may be related to the prior cholecystectomy. No filling defect is seen. Recommend correlation with clinical findings and laboratory values to exclude obstruction. If indicated clinically, MRCP could be performed for further evaluation. 3. Focal 3.9 cm solid area in the interpolar region of the left kidney is most likely related to a partially duplex collecting system versus column of Gustavo. A solid mass if felt to be less likely, but consider renal protocol MRI or CT for further evaluation versus follow-up ultrasound. Approved by: Angel Luis Hdz M.D. on 01/12/2023 at 9:21
== END ==
PROVIDERS: PCP Family Medicine; Referring Provider Family Medicine; Visit Provider Family Medicine
DX: N28.1 Cyst of kidney, acquired (principal); R10.819 Abdominal tenderness, unspecified site; K83.8 Other specified diseases of biliary tract; Z90.49 Acquired absence of other specified parts of digestive tract
CPT/HCPCS: 76700

== ENCOUNTER → 2023-04-19 10:43 | Outpatient (CLI) | payer MEDICARE, OTHER, SELFPAY ==
[2022-07-13 20:50] VITALS: BMI 32.9
--- NOTE | 2023-04-19 | DI.RAD.S_ITS ---
PROCEDURE: XR CERVICAL SPINE 2V OR 3V INDICATIONS: Cervicalgia TECHNIQUE: 3 view(s) of the cervical spine were acquired. COMPARISON: None. FINDINGS: Bones: No fractures or dislocations to the T1 level. The lateral masses of C1 appear intact on the odontoid view. Loss of intervertebral disc space height. Prominent vertebral body osteophytes. Uncovertebral joint hypertrophy. No suspicious bony lesions. Soft tissues: No prevertebral soft tissue swelling. 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 Dictated by: Derek George M.D. on 04/19/2023 at 13:18 Approved by: Derek George M.D. on 04/19/2023 at 13:19
== END ==
PROVIDERS: PCP Family Medicine; Referring Provider Family Medicine; Visit Provider Family Medicine
DX: M54.2 Cervicalgia (principal); M47.812 Spondylosis without myelopathy or radiculopathy, cervical region
CPT/HCPCS: 72040

== ENCOUNTER → 2023-05-06 12:43 | Outpatient (CLI) | payer MEDICARE, OTHER, SELFPAY ==
[2022-07-13 20:50] VITALS: BMI 32.9
--- NOTE | 2023-05-06 | DI.MG.S_ITS ---
UNILATERAL RIGHT DIGITAL SCREENING MAMMOGRAM 3D/2D WITH CAD: 05/06/2023 CLINICAL: Routine screening. Personal history of left breast cancer. Comparison is made to exams dated: 05/10/2022 mammogram, 05/09/2021 mammogram, 05/05/2020 mammogram, and 08/22/2019 mammogram - [facility]. There are scattered areas of fibroglandular density in the right breast (category b / 25%-50% glandular tissue). Current study was also evaluated with a Computer Aided Detection (CAD) system. There are stable benign calcifications in the right breast. There also are benign post operative findings in the right breast. No significant masses, calcifications, or other findings are seen in the breast. There has been no significant interval change. IMPRESSION: BENIGN There is no mammographic evidence of malignancy. A 1 year screening mammogram is recommended. This exam was interpreted at Station ID: [id number]. NOTE: For mammograms, a report in lay terms will be sent to the patient. Approximately 15% of breast malignancies will not be visualized mammographically. In the management of a palpable breast mass, a negative mammogram must not discourage biopsy of a clinically suspicious lesion. Electronically Signed By: Derek carr/kirsten:05/06/2023 17:17:41 copy to: Rodney Moon letter sent: Normal Exam ACR BI-RADS Category 2: Benign Finding(s) [id number]
== END ==
PROVIDERS: PCP Family Medicine; Referring Provider Family Medicine; Visit Provider Family Medicine
DX: Z12.31 Encounter for screening mammogram for malignant neoplasm of breast (principal); Z85.3 Personal history of malignant neoplasm of breast
CPT/HCPCS: 77063; 77067

== ENCOUNTER → 2023-08-06 09:35 | Outpatient (CLI) | payer MEDICARE, OTHER, SELFPAY ==
[2022-07-13 20:50] VITALS: BMI 32.9
--- NOTE | 2023-08-06 | DI.MRI.S_ITS ---
PROCEDURE: MR HEAD/BRAIN WO CON INDICATIONS: New daily persistent headache (NDPH) TECHNIQUE: Non-contrast axial T1 spin echo, axial T2 fast spin echo, sagittal and axial FLAIR, coronal T2 fast spin echo, axial gradient echo, axial diffusion and ADC through the brain. COMPARISON: MR, BRAIN W&WO CONTRAST, 12/16/2016, 13:02. MR, ANGIO HEAD WITHOUT CONTRAST, 12/16/2016, 12:53. CT, HEAD WITHOUT CONTRAST, 11/16/2016, 13:39. FINDINGS: Image quality: Excellent. CSF spaces: Ventricles appear symmetric in size and shape. Basal cisterns are patent. No extra-axial fluid collections. Brain: No intracranial bleeds or mass effects. There is cerebral volume loss for age. There are periventricular and deep white matter chronic small vessel ischemic changes. Brainstem appears normal. Diffusion-weighted images show no acute infarct. No chronic ischemic insults. Normal intravascular flow voids are present. Skull and face: Calvarial bone marrow is normal in signal. Orbits are normal. Sinuses: Sinuses and mastoids are clear. IMPRESSION: 1. No acute intracranial process. 2. Moderate atrophy and chronic microvascular ischemic changes. Dictated by: Francesca Donovan M.D. on 08/08/2023 at 11:04 Approved by: Francesca Donovan M.D. on 08/08/2023 at 11:05
== END ==
LOC: MRI 09:36
PROVIDERS: PCP Family Medicine; Referring Provider Family Medicine; Visit Provider Family Medicine
DX: G44.52 New daily persistent headache (NDPH) (principal)
CPT/HCPCS: 70551

== ENCOUNTER → 2023-08-17 10:43 | Outpatient (CLI) | payer MEDICARE, OTHER, SELFPAY ==
[2022-07-13 20:50] VITALS: BMI 32.9
--- NOTE | 2023-08-17 10:44 | DI.US.S_ITS ---
PROCEDURE: US CAROTID DOPPLER BI INDICATIONS: Atherosclerotic heart disease of [place] coronary TECHNIQUE: Color and pulse Doppler interrogation was performed of both carotid systems, with image documentation and velocity measurements. COMPARISON: [facility], , CAROTID ARTERY DOPPLER BIL, 10/28/2008, 10:59. FINDINGS: Stenosis calculations are based on SRU (Society of Radiologists in Ultrasound) criteria. The flow velocities and the arterial waveforms are normal within both carotid arterial systems. Atherosclerotic plaque is seen on both sides. The estimated degree of internal carotid artery stenosis is less than 50%. Antegrade flow is confirmed within both vertebral arteries. Mild cardiac arrhythmia can be seen on the waveforms. IMPRESSION: No hemodynamically significant stenosis is seen. No significant change from the prior. Atherosclerotic plaque is noted bilaterally. Mild cardiac arrhythmia noted on the waveforms. Dictated by: Sheng Andrews M.D. on 08/17/2023 at 10:58 Approved by: Sheng Andrews M.D. on 08/17/2023 at 10:59
== END ==
PROVIDERS: PCP Family Medicine; Referring Provider Family Medicine; Visit Provider Family Medicine
DX: I25.10 Atherosclerotic heart disease of native coronary artery without angina pectoris (principal); I49.9 Cardiac arrhythmia, unspecified
CPT/HCPCS: 93880

== ENCOUNTER → 2024-05-26 08:56 | Outpatient (CLI) | payer MEDICARE, OTHER, SELFPAY ==
[2022-07-13 20:50] VITALS: BMI 32.9
--- NOTE | 2024-05-26 08:57 | DI.MG.S_ITS ---
UNILATERAL RIGHT DIGITAL SCREENING MAMMOGRAM 3D/2D WITH CAD: 05/26/2024 CLINICAL: Routine screening. Personal history of left breast cancer. Comparison is made to exams dated: 05/06/2023 mammogram, 05/10/2022 mammogram, 05/09/2021 mammogram, and 05/05/2020 mammogram - [facility]. There are scattered areas of fibroglandular density (category b / 25%-50% glandular tissue). Current study was also evaluated with a Computer Aided Detection (CAD) system. There are stable benign calcifications in the right breast. There also are benign post operative findings in the right breast. No significant masses, calcifications, or other findings are seen in the breast. There has been no significant interval change. IMPRESSION: BENIGN There is no mammographic evidence of malignancy. A 1 year screening mammogram is recommended. This exam was interpreted at Station ID: [id number]. NOTE: For mammograms, a report in lay terms will be sent to the patient. Approximately 15% of breast malignancies will not be visualized mammographically. In the management of a palpable breast mass, a negative mammogram must not discourage biopsy of a clinically suspicious lesion. Electronically Signed By: Gita Young M.D., Ph.D. everardo/kirsten:05/28/2024 11:20:58 copy to: Rodney Moon letter sent: Normal Exam ACR BI-RADS Category 2: Benign
== END ==
PROVIDERS: PCP Family Medicine; Referring Provider Family Medicine; Visit Provider Family Medicine
DX: Z12.31 Encounter for screening mammogram for malignant neoplasm of breast (principal); Z85.3 Personal history of malignant neoplasm of breast
CPT/HCPCS: 77063; 77067

== ENCOUNTER → 2024-08-09 09:45 | Outpatient (CLI) | payer MEDICARE, OTHER, SELFPAY ==
[2022-07-13 20:50] VITALS: BMI 32.9
--- NOTE | 2024-08-09 09:46 | DI.ECHO.S_ITS ---
[facility]+ [facility] : : [address] : [place] : : [id number] : : Phone: [phone] Echocardiogram Report + + :Name: SELAM RAMIREZ Study Date: 08/09/2024 Height: 62 in : :[facility] ReadingLocation: Weight: 183 lb : : Gender: Female BSA: 1.8 m2 : :: 1945 Age: 79 yrs BP: 182/113 mmHg: :Reason For Study: ATHEROSCLEROTIC HEART DISEASE : :Ordering Physician: MAURIZIO, : :AVA Walker Performed By: Boo Hernandez : :Referring: AVA STEVEN : + + Interpretation Summary 1) Normal left ventricular thickness, size, wall motion, and systolic function (EF 55-60%). 2) Normal right ventricular size and function. 3) The left atrium is severely dilated. 4) There is mild mitral regurgitation. 5) Compared to the Echo done 11/22/2022, severe left atrial enlargement is present on this study. Procedure: A two-dimensional transthoracic echocardiogram with color flow and Doppler was performed. The study quality was technically good. Comparison is made with the echocardiogram of 11/22/2022. The patient was in normal sinus rhythm during the exam. Left Ventricle: The left ventricle is normal in size. There is normal left ventricular wall thickness. There is no ventricular septal defect visualized. The ejection fraction is estimated to be 55-60%. There are no focal wall motion abnormalities. Diastolic parameters suggest a pseudonormalization pattern, consistent with probable elevated filling pressures. Right Ventricle: The right ventricle is normal in size and function. Atria: The left atrium is severely dilated. Right atrial size is normal. There is no Doppler evidence for an interatrial shunt. Mitral Valve: The mitral valve leaflets appear normal. There is no evidence of stenosis, fluttering, or prolapse. There is mild mitral regurgitation. Aortic Valve: The aortic valve is trileaflet. The aortic valve opens well. There is no aortic valve stenosis. No aortic regurgitation is present. Tricuspid Valve: The tricuspid valve leaflets are thin and pliable. There is mild tricuspid regurgitation. The right ventricular systolic pressure is estimated to be at least 37 mmHg based on an estimated right atrial pressure of 8 mm Hg. Pulmonic Valve: The pulmonic valve is not well seen, but is grossly normal. There is trace pulmonic regurgitation. Great Vessels: The aortic root is normal size. The ascending aorta is at the upper limits of normal in size. The pulmonary artery is normal size. The IVC is dilated (diameter is greater than 2.1 cm) yet it collapses greater than 50% with a sniff. This suggests a right atrial pressure of 8 mm Hg. Pericardium/ Pleura There is no pericardial effusion. MMode/2D Measurements & Calculations LVIDd: 4.8 cm LVOT diam: 1.9 cm LVIDs: 3.4 cm Ao root diam: 2.8 cm FS: 29.9 % asc Aorta Diam: 3.7 cm EPSS: 0.34 cm Ao Arch Diam (Prox Trans): 1.8 cm IVSd: 0.96 cm LVPWd: 1.0 cm LV hernandez. diameter/BSA (cm/m^2): 2.6 LV sys. diameter/BSA (cm/m^2): 1.8 LA A2 area: 30.9 cm2 RA long axis: 4.5 cm LA A4 area: 26.4 cm2 RA area: 12.3 cm2 LA length (vol): 6.1 cm RA vol: 29.0 ml LA vol: 112.7 ml RA : 15.8 ml/m2 LA vol index: 61.2 ml/m2 IVC diam: 2.0 cm RVD1 (basal): 3.9 cm RVD2 (mid): 3.0 cm TAPSE: 2.3 cm Doppler Measurements & Calculations Ao V2 max: 172.4 cm/sec LVOT Max Yuri: 131.4 cm/sec Ao V2 mean: 114.8 cm/sec LV V1 max P.9 mmHg Ao max P.9 mmHg LV V1 VTI: 33.3 cm Ao mean P.8 mmHg TERRY(I,D): 2.2 cm2 Ao V2 VTI: 42.4 cm TERRY(V,D): 2.1 cm2 sev ratio: 0.79 TERRY indexed to BSA (cm^2/m^2): 1.2 MV E max yuri: 88.9 cm/sec TR max yuri: 271.2 cm/sec MV A max yuri: 109.0 cm/sec TR max P.4 mmHg MV E/A: 0.82 PA V2 max: 87.8 cm/sec Med Peak E' Yuri: 4.4 cm/sec PA V2 mean: 61.2 cm/sec E/E' med: 20.2 PA mean P.7 mmHg Lat Peak E' Yuri: 5.2 cm/sec PA pr(Accel): 15.6 mmHg E/E' lat: 17.1 E/e' average: 18.7 MV dec time: 0.26 sec SV(OT): 91.6 ml Reading Physician:05:23 PM
== END ==
PROVIDERS: PCP Family Medicine; Referring Provider Family Medicine; Visit Provider Family Medicine
DX: I70.0 Atherosclerosis of aorta (principal); I25.10 Atherosclerotic heart disease of native coronary artery without angina pectoris; I08.1 Rheumatic disorders of both mitral and tricuspid valves
CPT/HCPCS: 93306

== ENCOUNTER → 2024-10-09 14:15 | Outpatient (CLI) | payer MEDICARE, OTHER, SELFPAY ==
[2022-07-13 20:50] VITALS: BMI 32.9
--- NOTE | 2024-10-09 14:18 | DI.RAD.S_ITS ---
PROCEDURE: XR CHEST 2V INDICATIONS: COUGH TECHNIQUE: 2 views of the chest were acquired. COMPARISON: , CR, XR CHEST 2V, 12/08/2021, 11:18. FINDINGS: Heart, mediastinum and pulmonary vascular: Heart is normal in size and configuration. Small hiatal hernia noted-mediastinum otherwise normal.. Pulmonary vascular is normal. Lungs: Scattered small calcified granulomas appreciated. No definite infiltrates. Pleural spaces: Normal-no effusions or pneumothorax. Bones and soft tissues: Mild chronic wedging all thoracic vertebral bodies noted IMPRESSION: Small hiatal hernia. No acute cardiopulmonary disease Dictated by: Baljit Rivers M.D. on 10/10/2024 at 12:42 Approved by: Baljit Rivers M.D. on 10/10/2024 at 12:44
== END ==
PROVIDERS: PCP Family Medicine; Referring Provider Family Medicine; Visit Provider Family Medicine
DX: R05.9 Cough, unspecified (principal); K44.9 Diaphragmatic hernia without obstruction or gangrene
CPT/HCPCS: 71046

== ENCOUNTER → 2024-10-29 11:02 | Outpatient (CLI) | payer MEDICARE, OTHER, SELFPAY ==
[2022-07-13 20:50] VITALS: BMI 32.9
--- NOTE | 2024-10-29 | DI.RAD.S_ITS ---
PROCEDURE: XR THORACIC SPINE 2V INDICATIONS: CERVICALGIA TECHNIQUE: 3 views of the thoracic spine were acquired. COMPARISON: None. FINDINGS: Thoracic spine curvature and alignment: Normal. Bones: Mild chronic wedging of all of the upper and midthoracic vertebral bodies with endplate irregularities is likely due to osteoporosis and or Scheuermann's disease Disc spaces: Moderate degenerative disc disease is seen throughout the thoracic spine. Soft tissues: Small hiatal hernia noted IMPRESSION: Degeneration. Small hiatal hernia Dictated by: Baljit Rivers M.D. on 10/30/2024 at 7:51 Approved by: Baljit Rivers M.D. on 10/30/2024 at 7:52
--- NOTE | 2024-10-29 11:06 | DI.RAD.S_ITS ---
PROCEDURE: XR CERVICAL SPINE 2V OR 3V INDICATIONS: BACK/SPINE PAIN TECHNIQUE: Three views of the cervical spine were acquired. COMPARISON: [facility], CR, XR CERVICAL SPINE 2V OR 3V, 04/19/2023, 10:51. FINDINGS: Cervical spine curvature and alignment: Normal. Bones: There are no osseous abnormalities. Disc spaces: Mild C3-4, moderate C4-5 C5-6 C6-7 degenerative disc disease noted there is mild degenerate facet disease C3-4 through C7-T1 . Soft tissues: Mild calcific atherosclerotic plaque seen expected location of the right carotid bifurcation no change IMPRESSION: Degeneration-progressing since 2022 Dictated by: Baljit Rivers M.D. on 10/30/2024 at 7:50 Approved by: Baljit Rivers M.D. on 10/30/2024 at 7:51
== END ==
PROVIDERS: PCP Family Medicine; Referring Provider Family Medicine; Visit Provider Family Medicine
DX: M50.31 Other cervical disc degeneration, high cervical region (principal); M47.812 Spondylosis without myelopathy or radiculopathy, cervical region; M51.34 Other intervertebral disc degeneration, thoracic region; K44.9 Diaphragmatic hernia without obstruction or gangrene; R07.89 Other chest pain; M54.50 Low back pain, unspecified; I10 Essential (primary) hypertension
CPT/HCPCS: 72040; 72070

== ENCOUNTER → 2024-11-22 07:55 | Outpatient (CLI) | payer MEDICARE, OTHER, SELFPAY ==
[2022-07-13 20:50] VITALS: BMI 32.9
--- NOTE | 2024-11-22 | DI.ECHO.S_ITS ---
[place] [facility]---------+ [facility] : : [address] : : [place] : : [id number] : : Phone: [phone] Echocardiogram Report + + :Name: SELAM RAMIREZ Study Date: 11/22/2024 Height: 62 in : :Hospital ReadingLocation: Weight: 185 lb : : Gender: Female BSA: 1.8 m2 : :: 1945 Age: 79 yrs BP: 148/82 mmHg: :Reason For Study: Hypertension : :Ordering Physician: MAURIZIO, : :AVA Walker Performed By: Ac Lomeli : :Referring: AVA STEVEN : + + Interpretation Summary 1. The left ventricular contractility is normal. Estimate ejection fraction is greater than 60% with no segmental wall motion abnormalities. Mild concentric LVH. Unable to comment on diastolic function. 2. The right ventricular contractility is normal. 3. Mild left atrial enlargement. All other cardiac chambers are of normal size. 4. Trace to mild mitral regurgitation. 5. Trace to mild tricuspid regurgitation with estimated pulmonary systolic artery pressures of 32 mmHg. 6. No obvious intracardiac shunts. 7. No obvious intracardiac masses nor thrombi. 8. No hemodynamically significant pericardial effusion. 9. Low right-sided filling pressures. Conclusion: Normal biventricular systolic function with no severe valvular abnormalities. When compared with previous study, no significant changes have occurred. Procedure: A two-dimensional transthoracic echocardiogram with color flow and Doppler was performed. The study quality was technically adequate. Comparison is made with the echocardiogram of 08/06/24. The patient was in a bradycardic rhythm during the exam. The heart rate ranged between 50-54 bpm during the study. Left Ventricle: Left ventricular wall thickness is mildly increased. The left ventricle is normal in size. Left ventricular systolic function is normal. The ejection fraction is estimated to be 60-65%. Left ventricular wall motion is normal. Right Ventricle: The right ventricle is normal in size and function. Atria: The left atrium is mildly dilated. The right atrium is normal in size. There is no Doppler evidence for an interatrial shunt. Mitral Valve: There is mild mitral annular calcification. The mitral valve leaflets appear to open well. There is no mitral valve stenosis. There is mild mitral regurgitation. Aortic Valve: The aortic valve is trileaflet. The aortic valve opens well. There is no aortic valve stenosis. No aortic regurgitation is present. Tricuspid Valve: The tricuspid valve is not well visualized, but is grossly normal. There is mild tricuspid regurgitation. The right ventricular systolic pressure is estimated to be at least 32 mmHg based on an estimated right atrial pressure of 3 mm Hg. Pulmonic Valve: The pulmonic valve is not well seen, but is grossly normal. There is a trace or physiologic amount of pulmonic regurgitation. Great Vessels: The aortic root is normal size. The ascending aorta is normal in size. The aortic arch is normal in size. The IVC is of normal diameter and collapses greater than 50% with a sniff. This suggests a low right atrial pressure of 3 mm Hg. Pericardium/ Pleura There is no pericardial effusion. MMode/2D Measurements & Calculations LVIDd: 4.0 cm LVOT diam: 1.9 cm LVIDs: 2.4 cm Ao root diam: 2.9 cm FS: 39.9 % asc Aorta Diam: 3.6 cm IVSd: 1.3 cm Ao Arch Diam (Prox Trans): 2.5 cm LVPWd: 1.4 cm LV hernandez. diameter/BSA (cm/m^2): 2.2 LV sys. diameter/BSA (cm/m^2): 1.3 LA A2 area: 21.2 cm2 RA long axis: 5.6 cm LA A4 area: 21.2 cm2 RA area: 14.8 cm2 LA length (vol): 5.7 cm RA vol: 33.6 ml LA vol: 66.5 ml RA : 18.2 ml/m2 LA vol index: 35.9 ml/m2 IVC diam: 1.4 cm RVD1 (basal): 2.7 cm RVD2 (mid): 2.2 cm TAPSE: 2.1 cm Doppler Measurements & Calculations Ao V2 max: 142.2 cm/sec LVOT Max Yuri: 105.0 cm/sec Ao V2 mean: 101.7 cm/sec LV V1 max P.4 mmHg Ao max P.1 mmHg LV V1 VTI: 25.0 cm Ao mean P.5 mmHg TERRY(I,D): 2.2 cm2 Ao V2 VTI: 31.7 cm TERRY(V,D): 2.1 cm2 sev ratio: 0.79 TERRY indexed to BSA (cm^2/m^2): 1.2 MV E max yuri: 102.2 cm/sec TR max yuri: 286.3 cm/sec MV A max yuri: 111.5 cm/sec TR max P.8 mmHg MV E/A: 0.92 PA V2 max: 94.8 cm/sec MV dec time: 0.26 sec PA V2 mean: 68.5 cm/sec PA mean P.1 mmHg PA pr(Accel): 14.8 mmHg SV(LVOT): 69.8 ml Reading Physician:KT
== END ==
LOC: ECHO 07:57
PROVIDERS: PCP Family Medicine; Referring Provider Family Medicine; Visit Provider Family Medicine
DX: I08.1 Rheumatic disorders of both mitral and tricuspid valves (principal); M54.2 Cervicalgia; I10 Essential (primary) hypertension; R07.89 Other chest pain
CPT/HCPCS: 93306